=== PATIENT | female | born 1950 | race Caucasian/White ===

== ENCOUNTER 2020-04-30 10:57 | Day surgery (SDC) | payer MEDICARE, SELFPAY ==
[2020-04-24 12:45] VITALS: BMI 23.3
[2020-04-30] VITALS (8 sets, daily range): BP systolic 106–164; BP diastolic 70–104; PULSE 66–97; RESP 16–18; TEMP 36.1–36.7; O2SAT 97–99
--- NOTE | 2020-04-30 11:31 | HO.ANESPROP2 ---
[facility] Past Medical History Medical History (Updated 04/24/20 @ 12:42 by Humera Escalante) Reactive airway disease that is not asthma Surgical History Surgical History (Updated 04/24/20 @ 12:42 by Humera Escalante) Hx of wisdom tooth extraction Social History Social History (Updated 04/24/20 @ 12:44 by Humera Escalante) Alcohol intake: current Alcohol intake frequency: 0-2 drinks per day Smoking Status: Former smoker Years Smoked: 47 Smoking Quit Date: 04/14/2020 Use of substances other than those prescribed or required for medical reasons: No Advance Directives: No Advance Directives Information Provided: No Advance Directives on File: No Meds Allergies Allergy/AdvReac Type Severity Reaction Status Date / Time No Known Allergies Allergy Verified 04/29/20 13:11 Home Medications Medication Instructions Recorded Confirmed Type bupropion HCl 150 mg PO BID 04/24/20 04/24/20 History Exam Exam Date and Time: April 30, 2020 1131 Height,Weight and Vital Signs: Height 5 ft 6 in Weight 65.771 kg Last Vital Signs Temp 97.0 F 04/30/20 11:01 Pulse 91 04/30/20 11:27 Resp 18 04/30/20 11:27 BP 158/92 H 04/30/20 11:27 Pulse Ox 97 04/30/20 11:27 Airway Mallampati Class: II TM Dist: >3cm Neck ROM: Full Heart: RRR Assessment and Plan Assessment Anesthesia Assessment: Anesthesia Plan Discussed Final Anesthetic Review NPO: Yes ASA Class: II Final Preanesthetic Review: Consent Obtained/Reviewed Anesthetic Plan Anesthetic Plan: MAC: Disposition: Standard PACU
--- NOTE | 2020-04-30 11:44 | MHC.SHP ---
Pre-Procedural Eval Section B Chief Complaint: Screening Relevant Family History (Specify if Yes): No Relevant Social History: Tobacco Use (ex smoker, just gave up) Present Medications: see Short Stay Collaborative assessment Medical History: Significant History (glaucoma, carpal tunnel) History of Previous Operations: No relevant previous surgery Allergies: Allergies Allergy/AdvReac Type Severity Reaction Status Date / Time No Known Allergies Allergy Verified 04/29/20 13:11 Review of Systems Sugical H&P ROS: Negative: Constitution, Cardiovascular, Respiratory, Neurological, Psychiatric, Hem-Onc, Allergic/Immunologic, Gastrointestinal, Genitourinary, Musculoskeletal, Integumentary, Endocrine and Eyes/Ears/Nose/Throat Exam Surgical H&P Exam: Normal: HEENT, Normal: Heart, Normal: Lungs, Normal: Extremities, Normal: Abdomen, Normal: Skin and Normal: Neurological Plan Diagnosis/Plan: Unchanged Patient has been examined and remains a candidate for the planned procedure
--- NOTE | 2020-04-30 13:27 | PM.OP ---
Brief Operative Note Date of Service: 04/30/20 Pre-op diagnosis: colon screen Post-op diagnosis: same Procedure: see op note Surgeon: Michelle Moore MD Anesthesia: MAC Estimated blood loss (mL): 25 Condition: stable Disposition: PACU
--- NOTE | 2020-04-30 13:28 | P.OP_ITS ---
Operative Note Operative Note Date of Service: 04/30/20 Narrative: Operative Information Procedure Description: Colonoscopy COLONOSCOPY Instrument: Olympus variable stiffness pediatric scope 190L Colonoscopy Monitoring: Vital signs and clinical assessment, continuous EKG monitoring, Pulse oximetry, Carbon Dioxide monitoring and blood pressure monitoring were done throughout the procedure. Colon withdrawal time was 66 minutes. Procedure: The patient was placed in the left lateral decubitis position and pre-procedure medications were administered. After a digital rectal examination of the ano-rectum, the video colonoscope was inserted into the rectum and advanced through the colon to the cecum/TI. The colonoscope was slowly withdrawn in a retrograde panoramic fashion and the colon mucosa was carefully examined including a retroflexed view of the rectum. Findings and interventions are described below. Procedure Difficulty:easy Findings: Terminal Ileum-normal Cecum: Large polypoid mass occupying about 1/3 rd of the cecum and extending to the verge of the proximal ascending colon, the central part appeared to be depressed, biopsies taken but felt soft. Ascending Colon: 8-9 mm sessile polyp removed with cold snare Transverse Colon -normal Descending Colon: 10-12 mm pedunculated polyp and 10 mm sessile polyp removed with cold snare. Sigmoid Colon: diverticulosis, x 2 large polypoid lesions, largest was sessile type and measured about 25 mm-30 mm, this was injected with epinephrine and then ORISE with good lift. It was piece meal resected and pieces recovered using net. The edges of the area were treated with soft tip coag. There was oozing of blood and 6 clips applied with cessation of bleeding. The next polyp was pedunculated and measured about 20 mm, the stalk was clipped x 3 clips and then the polyp was removed piece meal with hot snare. There was a few smaller polypoid lesions measuring 8-10 mm, only one was removed due to time constraints and her colon was going into spasm. Rectum: Retroflexion with small to moderate sized internal hemorrhoids, grade I Anorectum - normal Colon preparation: [place] Bowel Preparation Scale Right colon; 2 Transverse colon: 3 Left colon; 2 (0 = Unprepared colon segment with mucosa not seen due to solid stool that cannot be cleared. 1 = Portion of mucosa of the colon segment seen, but other areas of the colon segment not well seen due to staining, residual stool and/or opaque liquid. 2 = Minor amount of residual staining, small fragments of stool and/or opaque liquid, but mucosa of colon segment seen well. 3 = Entire mucosa of colon segment seen well with no residual staining, small fragments of stool or opaque liquid) Impression and Post Procedure Diagnosis: colonic polyps internal hemerrhoids diverticulosis Plan: High fiber diet leaflet Avoid straining at stool, epsom salts and sitz bath, anusol supps or cream Refer to Dr Almaraz for right hemicolectomy, will need early colonoscopy for removal of smaller polyps on the left side. 1 week course of Augmentin to prevent post polypectomy syndrome, avoid nsaid for 5 days Above findings were reviewed with the patient and relevant handouts were provided if indicated.
[2020-04-30] MEDS: Amoxicillin/Potassium Clav 875 MG TABLET PO (14:31)
--- NOTE | 2020-04-30 14:45 | HO.POSTANES ---
Post Anesthesia Evaluation Post Anesthesia Evaluation Vital Signs: Vital Signs Temp Pulse Resp BP Pulse Ox 04/30/20 14:26 75 16 158/82 H 98 04/30/20 14:12 98.1 F 66 16 164/81 H 99 04/30/20 13:57 71 16 146/81 H 99 04/30/20 13:42 80 16 146/88 H 98 04/30/20 13:35 79 16 121/77 98 04/30/20 13:28 98 F 81 16 106/70 97 04/30/20 11:27 91 18 158/92 H 97 04/30/20 11:01 97.0 F 97 16 163/104 H 97 Anesthesia: Monitored Mental Status: Awake Pain Control: Satisfactory Nausea/Vomiting: None Hydration: Adequate Anesthesia-Related Issues: No Anes. Related Issues
== END 2020-04-30 15:02 | disposition home or self-care (01) ==
PROVIDERS: Visit Provider Internal Medicine Gastroenterology
PROC: 0DJD8ZZ Inspection of Lower Intestinal Tract, Via Natural or Artificial Opening Endoscopic (ICD-10-PCS; CPT 45378; principal; 2020-04-30 12:20)
DX: Z12.11 Encounter for screening for malignant neoplasm of colon (principal); D12.0 Benign neoplasm of cecum; D12.2 Benign neoplasm of ascending colon; D12.4 Benign neoplasm of descending colon; D12.5 Benign neoplasm of sigmoid colon; K57.30 Diverticulosis of large intestine without perforation or abscess without bleeding; K64.0 First degree hemorrhoids; Z87.891 Personal history of nicotine dependence; Z79.899 Other long term (current) drug therapy
CPT/HCPCS: 45385; 45380; 45381; 88305; J0171; J2370

== ENCOUNTER 2020-05-16 12:54 | Outpatient (REF) | payer MEDICARE, SELFPAY ==
[2020-05-16 15:01] LABS: Blood Urea Nitrogen 16 mg/dL (9-16); Estimated Glomerular Filt Rate > 60
== END 2020-05-16 12:55 | disposition home or self-care (01) ==
LOC: HO.LAB 12:54
PROVIDERS: PCP Registered Nurse; Visit Provider Surgery
DX: D12.0 Benign neoplasm of cecum (principal); D12.5 Benign neoplasm of sigmoid colon; Z87.891 Personal history of nicotine dependence; Z90.49 Acquired absence of other specified parts of digestive tract
CPT/HCPCS: 82565; 84520; 99202

== ENCOUNTER 2020-05-23 09:27 | Outpatient (REF) | payer MEDICARE, SELFPAY ==
--- NOTE | 2020-05-23 09:29 | CT_ITS ---
EXAMINATION: CT ABDOMEN AND PELVIS WITH CONTRAST CLINICAL INFORMATION: Polyp of colon. COMPARISON: None. TECHNIQUE: Multidetector volumetric images were obtained from the superior aspect of the liver through the pubic symphysis following administration 85 mL of Omnipaque 350 intravenous contrast. Sagittal and coronal reformatted images were obtained on the technologist's workstation. Oral contrast: No This CT examination was performed using dose optimization techniques as appropriate, variously including the following: *Automated exposure control *Adjustment of mA and/or kV according to patient size (this includes techniques or standardized protocols for targeted exams where dose is matched to indication/reason for exam; i.e. extremities or head) *Use of iterative reconstruction technique DLP: 343 mGy-cm FINDINGS: LUNG BASES: There is minimal thickening of inferior left major fissure. There is atelectatic changes or scarring right lung base. The heart size is normal. LIVER, GALLBLADDER, AND BILIARY TREE: The liver is normal in size, shape, and attenuation. No focal hepatic lesion or biliary ductal dilatation is present. The gallbladder is unremarkable with no evidence of radiopaque gallstones, gallbladder wall thickening, or obvious pericholecystic inflammatory changes. PANCREAS: Unremarkable. SPLEEN: Unremarkable. ADRENAL GLANDS: Unremarkable. KIDNEYS AND URETERS: The kidneys are normal in size, shape, and attenuation. No hydronephrosis, hydroureter, or calculi seen. No perinephric stranding. BLADDER: Unremarkable. GASTROINTESTINAL TRACT: There is scattered stool seen throughout the colon without any significant distention. The small bowel loops are normal caliber. The appendix is normal caliber. ABDOMINAL WALL: No significant hernia is appreciated. LYMPH NODES: Normal. VASCULAR: Unremarkable. PELVIC VISCERA: The uterus is anteverted and unremarkable. There is no free air or free fluid. No evidence of inguinal hernia or abnormal lymph nodes. OSSEOUS STRUCTURES: There are degenerative disc changes at all lumbar disc levels with vacuum disc phenomena at L2-L3, L4-L5 and L5-S1 disc level. Grade 1 anterolisthesis of L4 over L5 is noted. There is moderate ventral spondylosis lower dorsal spine. CT/CT abdomen pelvis w con IMPRESSION: Mild constipation. No acute process seen. Grade 1 anterolisthesis L4 over L5. There are degenerative disc changes at all lumbar disc levels and moderate ventral spondylosis lower dorsal spine.
[2020-05-23] MEDS: iohexoL 350 MG/ML 100 ML INFUS..BTL 85 ML IV (09:58)
== END 2020-05-23 09:28 | disposition home or self-care (01) ==
LOC: HO.CT 09:27
PROVIDERS: Visit Provider Surgery
DX: K63.5 Polyp of colon (principal)
CPT/HCPCS: 74177; Q9967

== ENCOUNTER → 2020-05-28 08:38 | Outpatient (BNVA) | payer MEDICARE, SELFPAY | PROVIDERS: PCP Registered Nurse; Referring Provider Registered Nurse; Visit Provider Physician Assistant | DX: Z13.89 Encounter for screening for other disorder (principal) | CPT/HCPCS: Q3014 ==

== ENCOUNTER 2020-06-21 09:06 | Inpatient (IN) | payer MEDICARE, SELFPAY ==
--- NOTE | 2020-06-18 | ECG_ITS ---
Test Reason : SMOKER, ETOH, PREOP Blood Pressure : / mmHG Vent. Rate : 075 BPM Atrial Rate : 075 BPM P-R Int : 186 ms QRS Dur : 098 ms QT Int : 398 ms P-R-T Axes : 072 025 058 degrees QTc Int : 444 ms Normal sinus rhythm Normal ECG No previous ECGs available Referred By: Emily Reid Electronically Signed By:Tj Escobar
[2020-06-18 11:53] VITALS: BP 154/85; PULSE 81; RESP 20; O2SAT 97; BMI 24.9
--- NOTE | 2020-06-18 12:34 | P.CONAN_ITS ---
Documented by User: Emily Reid 06/19/20 09:46 HPI - Anesthesia Eval Consult details Narrative: 69yo F for Bowel Resection Quit smoking 04/2020 2-3 liquor drinks daily. Denies any h/o withdrawal symptoms. Instructed to gradually decrease preop. Pending labs,type and screen, ekg [facility] Past Medical History Medical History Arthritis Back pain Bronchitis Ex-smoker for less than 1 year Polyp of cecum Reactive airway disease that is not asthma Family History Family History Brother History of lung cancer, Onset Age: 52 History of kidney cancer Family history of problems with anesthesia: No Surgical History Surgical History History of colonoscopy (04/30/20) Hx of wisdom tooth extraction History of Problems with Anesthesia: No Social History Social History (Updated 06/18/20 @ 12:16 by Emma Flowers) Are you a primary healthcare market consultant to a significant other at home: No Do you presently have visiting nurse or other home services: No Alcohol intake: current Alcohol intake frequency: 0-2 drinks per day Alcohol type: hard liquor Smoking Status: Former smoker Cigarettes Per Day: 3 Years Smoked: 47 Smoked in Last 30 Days: No Smoking Quit Date: 04/14/20 Use of substances other than those prescribed or required for medical reasons: Yes Substance Use Type: Marijuana Substance Use Frequency: Occasionally Have you been hit, kicked, punched, or otherwise hurt by someone within the past year? If so, by whom?: No Advance Directives Information Provided: No Recently lost weight without trying: No Narrative Narrative: No recent illness >4 mets with walking Meds Allergies Allergy/AdvReac Type Severity Reaction Status Date / Time No Known Allergies Allergy Verified 06/21/20 06:07 Home Medications Medication Instructions Recorded Confirmed Type bupropion HCl 150 mg PO BID 04/24/20 06/18/20 History B.breve-L.acid-L.rham-S.thermo 2 tab PO DAILY 06/18/20 06/18/20 History [Probiotic] rxokglnxukkq-fjohfeiu-fjobdj 1 tab PO DAILY 06/18/20 06/18/20 History [Centrum Silver] Exam Exam Date and Time: June 18, 2020 1234 Height,Weight and Vital Signs: Height 5 ft 6 in Weight 70 kg Last Vital Signs Pulse 81 06/18/20 11:53 Resp 20 06/18/20 11:53 BP 154/85 H 06/18/20 11:53 Pulse Ox 97 06/18/20 11:53 Pertinent Lab Results Pertinent Lab Results: Laboratory Tests 06/18/20 06/18/20 13:07 13:07 WBC 7.6 Hgb 14.4 Hct 42.6 Plt Count 312 Sodium 139 Potassium 4.3 Chloride 101 Carbon Dioxide 27 BUN 15 Creatinine 0.90 Narrative Narrative: EKG 06/2020: NSR@75 Airway Mallampati Class: II TM Dist: >3cm Loose/Missing/Broken Teeth: Yes (Many teeth pulled in preparation for implants. No loose/broken of those remaining.) Heart: RRR Lungs: CTAB Assessment and Plan Assessment Anesthesia Assessment: Anesthesia Plan Discussed, Smoking Cess. Discussed and PAT Visit Documented by User: Bernarda Christianson 06/21/20 07:26 [facility] Past Medical History Medical History Arthritis Back pain Bronchitis Ex-smoker for less than 1 year Polyp of cecum Reactive airway disease that is not asthma Family History Family History Brother History of lung cancer, Onset Age: 52 History of kidney cancer Surgical History Surgical History History of colonoscopy (04/30/20) Hx of wisdom tooth extraction Social History Social History (Updated 06/18/20 @ 12:16 by Emma Flowers) Are you a primary healthcare market consultant to a significant other at home: No Do you presently have visiting nurse or other home services: No Alcohol intake: current Alcohol intake frequency: 0-2 drinks per day Alcohol type: hard liquor Smoking Status: Former smoker Cigarettes Per Day: 3 Years Smoked: 47 Smoked in Last 30 Days: No Smoking Quit Date: 04/14/20 Use of substances other than those prescribed or required for medical reasons: Yes Substance Use Type: Marijuana Substance Use Frequency: Occasionally Have you been hit, kicked, punched, or otherwise hurt by someone within the past year? If so, by whom?: No Advance Directives Information Provided: No Recently lost weight without trying: No Meds Allergies Allergy/AdvReac Type Severity Reaction Status Date / Time No Known Allergies Allergy Verified 06/21/20 06:07 Home Medications Medication Instructions Recorded Confirmed Type bupropion HCl 150 mg PO BID 04/24/20 06/18/20 History B.breve-L.acid-L.rham-S.thermo 2 tab PO DAILY 06/18/20 06/18/20 History [Probiotic] qfkunacctihd-yfxxohet-bqtgos 1 tab PO DAILY 06/18/20 06/18/20 History [Centrum Silver] Exam Airway Mallampati Class: II TM Dist: >3cm Neck ROM: Full Loose/Missing/Broken Teeth: No Heart: RRR Lungs: CTA Assessment and Plan Assessment Anesthesia Assessment: Anesthesia Plan Discussed and Chart Reviewed Final Anesthetic Review NPO: Yes ASA Class: II Final Preanesthetic Review: Meds/Allgs Chart Reviewed, Consent Obtained/Reviewed and Anes Risks/Benef Reviewed Patient Risk: Intermediate Procedure Risk: Intermediate Anesthetic Plan Anesthetic Plan: GA Disposition: Standard PACU
[2020-06-18 13:36] LABS: MANUAL DIFF FLAG NO
[2020-06-18 13:38] LABS: Basophils Percent Auto 0.5 % (0-2); Eosinophils Absolute Auto 0.1 X10*3/uL (0.0-0.4); Eosinophils Percent Auto 1.6 % (0-4); Hematocrit 42.6 % (37-47); Hemoglobin 14.4 g/dl (12.0-16.0); Imm Gran Abs Auto 0.02 X10*3/uL (0.00-0.03); Imm Gran Pct Auto 0.3 % (0.0-0.4); Lymphocytes Absolute Auto 1.4 X10*3/uL (1.2-4.9); Lymphocytes Percent Auto 18.6 % (20-40); Mean Corpuscular HGB Conc 33.8 g/dl (31.0-35.0); Mean Corpuscular Hemoglobin 35.2 pg (27.0-33.0); Mean Corpuscular Volume 104.2 fL (80-98); Mean Platelet Volume 8.7 fL (9.4-12.3); Monocytes Absolute Auto 0.8 X10*3/uL (0.1-1.2); Neutrophils Absolute Auto 5.3 X10*3/uL (2.0-8.3); Platelet Count 312 X10*3/uL (160-400); Red Blood Count 4.09 X10*6/uL (4.20-5.50); Red Cell Distribution Width 12.3 % (11.0-16.0); White Blood Count 7.6 X10*3/uL (4.8-10.8)
[2020-06-18 14:01] LABS: Anion Gap 15 (12-20); Blood Urea Nitrogen 15 mg/dL (9-16); Calcium 9.1 mg/dL (8.4-10.2); Carbon Dioxide 27 mmol/L (22-29); Chloride 101 mmol/L (96-108); Creatinine Clr Calc Pharmacy 55.9; Estimated Glomerular Filt Rate > 60; Glucose Random 85 mg/dL (60-115); Potassium 4.3 mmol/l (3.3-5.1); Sodium 139 mmol/L (135-145)
[2020-06-21] VITALS (12 sets, daily range): BP systolic 127–150; BP diastolic 66–87; PULSE 63–78; RESP 16–18; TEMP 36.1–37.4; O2SAT 96–100
[2020-06-21] MEDS: Lactated Ringers 1,000 ML 100 ML IVCONT (06:39)
[2020-06-21 06:42] LABS: COVID-19 Test Negative (Negative)
--- NOTE | 2020-06-21 09:05 | PM.OP ---
Brief Operative Note Date of Service: 06/21/20 Pre-op diagnosis: cecal polyp Post-op diagnosis: same Procedure: hand assisted laparoscopic right colon resection Surgeon: PRUDENCE WANG MD Anesthesia: MARTIN Optical Designer: Katie Ktaz Estimated blood loss (mL): 25 IV fluids (mL): 900 Urine output (mL): 75 Pathology: other (RIGHT COLON) Condition: stable Disposition: PACU
--- NOTE | 2020-06-21 09:14 | P.HPSUR_ITS ---
Pre-Procedural Eval Section B Chief Complaint: Cecal polyp Details of Present Illness: cecal polyp , large on colonoscopy last Apr 2020 Relevant Family History (Specify if Yes): No Relevant Social History: Tobacco Use Present Medications: see Short Stay Collaborative assessment Medical History: Significant History (smoker) Allergies: Allergies Allergy/AdvReac Type Severity Reaction Status Date / Time No Known Allergies Allergy Verified 06/21/20 06:07 Review of Systems Sugical H&P ROS: Negative: Constitution, Cardiovascular, Respiratory, Neurological, Psychiatric, Hem-Onc, Allergic/Immunologic, Gastrointestinal, Genitourinary, Musculoskeletal, Integumentary, Endocrine and Eye s/Ears/Nose/Throat Exam Surgical H&P Exam: Normal: HEENT, Normal: Heart, Normal: Lungs, Normal: Extremities, Normal: Abdomen, Normal: Skin and Normal: Neurological Plan Diagnosis/Plan: Unchanged I have reviewed the history and physical and performed a pertinent physical examination on my patient. No changes have occurred unless specified.
[2020-06-21] MEDS: oxyCODONE HCl Immed Release 5 MG TABLET PO ×4 (09:53→22:44)
--- NOTE | 2020-06-21 10:39 | OP_ITS ---
SURGEON: Vinh Almaraz MD INDICATIONS: The patient is a 69-year-old female, who had undergone colonoscopy with Dr. Moore last April 2020 and was noted to have a large cecal polyp. 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 This was unresectable endoscopically, so she was referred to me for resection. The patient understood the technique of hand-assisted right colon resection. She was aware of the risks, benefits, and alternatives and she had given consent. PREOPERATIVE DIAGNOSIS: Large cecal polyp POSTOPERATIVE DIAGNOSIS: Large cecal polyp PROCEDURE PERFORMED: Hand-assisted laparoscopic right colon resection. ESTIMATED BLOOD LOSS: COMPLICATIONS: ANESTHESIA: ASSISTANTS: SPECIMENS: FAMILY PRACTICE PHYSICIAN: ALEXANDR Archer. DESCRIPTION OF PROCEDURE: She was brought to the operating room and placed supine on the table under general anesthesia via endotracheal tube. A Flannery catheter was inserted. The abdomen was prepped and draped in usual sterile fashion. A surgical time-out was done. The patient received Cefotan 2 g IV preoperatively. A short midline incision was made in the skin just below the umbilicus using blade #15 and this was carried down to full-thickness skin and subcutaneous fat down to the fascia. The fascia was incised. The peritoneum was entered. We positioned an Tommy wound retractor through this. The GelPort along with an insufflating port were then applied. We insufflated with the camera. We used a 10 mm 30-degree scope and with laparoscopic visualization, we proceeded to insert another 5/12 port in the epigastric area. We removed the insufflating port from the GelPort. We moved the camera through the epigastric port. I then inserted my hand into the GelPort and the patient was placed in a [id number] position. We retracted the bowel loops away from the right side to expose the cecum. The cecum was traced all the way to the right colon and the transverse colon. We reflected all the bowel loops away from right side. I was able to palapte a soft mass in the cecum, which represented the cecal polyp. With laparoscopic visualization, we inserted 5 mm port in the left upper quadrant as this will serve as our working port. We inserted a 5 mm [place] LigaSure through this working port and gently divided the ligamentous attachments of the right colon along the white line of Toldt all the way to the hepatic flexure. We successfully divided the hepatocolic ligaments from the transverse colon and continued to separate the right colon and the hepatic flexure from the retroperitoneum. We the transverse colon from the gallbladder which had ashesions, which were also divided using the [place] dissector. We continued to gently peel off the thin adhesions from the retroperitoneum to continue to mobilize the right colon. By doing so, we were able to clearly identify the duodenum and this was protected during the rest of the dissection. We continued to divide the ligamentous attachments all the way to the cecum until we were able to clearly mobilize this. The appendix was also noted. We continued to separate the right colon from the retroperitoneum along with the hepatic flexure. Once I felt that we had very good mobilization of the right colon and the transverse colon and the hepatic flexure, we proceeded to gently desufflate the port sites. I removed the GelPort and put up the entire right colon all the way to the transverse colon through this incision. We had the whole right colon mobilized all the way past the mid part of the transverse colon. I chose my point of dissection at the hepatic flexure and created a mesenteric window through this. A HARRY 60 mm stapler was applied and this right colon was transected at the flexure. We proceeded to do the same transection on the terminal ileum about 10 mm past the ileocecal valve. Again, I created the mesenteric window and divided this using the HARRY 60 mm stapler. I marked my line of transection on the right colon mesentery by cauterizing this to make sure that we were including the lymph node basin of the right colic pedicle. I then proceeded to use the LigaSure to continue to divide the mesentery in a high ligation fashion. This was done starting from the proximal and then with the distal mesentery, stopping at the ileocolic pedicle. I stopped at the pedicle and thinned this out. We then proceeded to clamp the ileocolic pedicle and this was divided between clamps. I doubly ligated the pedicle with Dexon 2-0 ties. The entire right colon entrance along with the mesentery divided in a high ligation fashion and was then sent for a specimen for immediate gross. We observed for hemostasis. There was noted good hemostasis on the transected mesentery. I then proceeded to do my gdda-ow-ncta anastomosis by aligning the remaining transverse colon and the distal ileal stump. I opened up the apex of the staple line to enter the lumen. I aligned the mesenteric border and inserted each arm of the HARRY 60 mm stapler. We then proceeded to lock the stapler in place at the antimesenteric border and made sure that there was no other structure caught between the staplers. We then proceeded to fire the stapler to create our bxpr-sh-jslm anastomosis. I aligned the edhes of the enterotomy using Allis clamps in full thickness fashion.. I then proceeded to close the enterotomy with a TA 60 mm stapler to complete our anastomosis. I examined all staple lines and these all appeared to be intact. The anastomotic site was viable and did not appear to have any signs of duskiness or ischemia. I applied seromuscular Dexon 2-0 sutures on the crotch of the staple line to release tension from this. I then covered the anastomotic site with omentum. We then proceeded to replace all bowel loops back into the peritoneal cavity. I re-applied the GelPort and examined laparoscopically. I examined all four quadrants. There was no evidence of any bowel injury. There was no other pathology seen. There was no obvious liver lesions as well on examination. Once hemostasis was ensured, we proceeded to then desufflate the port sites. I removed all ports. I removed the Tommy wound retractor and the GelPort. I closed the fascia with a running Maxon 1 stitch. I closed all incisions with skin yoel after changing the gloves. I infiltrated all incisions with Marcaine 0.5% for postop analgesia. Dressings were applied. The patient tolerated the procedure well. There were no complications noted. Initial and final counts of sponge and instruments were correct. Estimated blood loss was about 20 mL. The patient was extubated without difficulty and transferred to the recovery room with stable vital signs. MD SEKOU Noel/ANABELLE / [id number] MTDD
[2020-06-21] MEDS: Lactated Ringers 1,000 ML 80 ML IVCONT ×2 (11:04→22:45)
--- NOTE | 2020-06-21 14:25 | PM.EVENT ---
Event Note Date of Service: 06/21/20 Event Note: underwent hand assisted laparoscopic right colon resection earlier today, uneventful says she has good pain control on clear liquids stable VS abd soft good UO pain mgt advance diet when with recovery of GI function
--- NOTE | 2020-06-21 14:40 | MHC.CM.PN ---
CM MET WITH PT WHO IS ALERT AND ORIENTED, ANTICIPATED DISCHARGE ON , SATURDAY 06/24 PER SURGICAL, HOME WITH NO SERVICES, FRIEND PAULINA FOR TRANSPORT. PT REPORTS SHE IS COMPLETELY INDEPENDENT PRIOR TO PROCEDURE AND DOES NOT ANTICIPATE ANY NEED FOR ASSISTANCE ONCE HOME. PT DENIES USE OF DME AND HOME HEALTH SERVICES. PT VERIFIED PCP AND PHARMACY AND GAVE CM A HARD COPY OF HER HCP. PCP: EMILE CORTEZ PHARMACY: [facility] IN [place] HCP TONEY MARTINEZ ( STEP GRANDDAUGHTER) ALTERNATE: JUDI DARNELL (STE[place])
[2020-06-22] VITALS (9 sets, daily range): BP systolic 124–167; BP diastolic 63–83; PULSE 67–665; RESP 16–20; TEMP 36.8–37.5; O2SAT 93–96
[2020-06-22] MEDS: 0.9 % Sodium Chloride Flush 3 ML SYRINGE IVFLUSH
[2020-06-22] MEDS: oxyCODONE HCl Immed Release 5 MG TABLET PO ×3 (03:06→19:23)
[2020-06-22] MEDS: Morphine Sulfate 2 MG/ML CARTRIDGE 4 MG IVPUSH ×2 (04:46→10:48)
[2020-06-22 06:45] LABS: MANUAL DIFF FLAG NO
[2020-06-22 06:56] LABS: Basophils Percent Auto 0.1 % (0-2); Hematocrit 37.1 % (37-47); Hemoglobin 12.7 g/dl (12.0-16.0); Imm Gran Abs Auto 0.02 X10*3/uL (0.00-0.03); Imm Gran Pct Auto 0.2 % (0.0-0.4); Lymphocytes Absolute Auto 0.7 X10*3/uL (1.2-4.9); Lymphocytes Percent Auto 7.3 % (20-40); Mean Corpuscular HGB Conc 34.2 g/dl (31.0-35.0); Mean Corpuscular Hemoglobin 35.3 pg (27.0-33.0); Mean Corpuscular Volume 103.1 fL (80-98); Mean Platelet Volume 8.8 fL (9.4-12.3); Monocytes Absolute Auto 0.9 X10*3/uL (0.1-1.2); Monocytes Percent Auto 8.7 % (2-11); Neutrophils Absolute Auto 8.4 X10*3/uL (2.0-8.3); Neutrophils Percent Auto 83.7 % (45-73); Platelet Count 267 X10*3/uL (160-400); Red Cell Distribution Width 11.9 % (11.0-16.0)
[2020-06-22 07:14] LABS: Anion Gap 13 (12-20); Blood Urea Nitrogen 9 mg/dL (9-16); Calcium 8.5 mg/dL (8.4-10.2); Carbon Dioxide 26 mmol/L (22-29); Chloride 101 mmol/L (96-108); Creatinine Clr Calc Pharmacy 58.6; Estimated Glomerular Filt Rate > 60; Glucose Random 136 mg/dL (60-115); Potassium 4.3 mmol/l (3.3-5.1); Sodium 136 mmol/L (135-145)
[2020-06-22] MEDS: Heparin Sodium,Porcine 5,000 UNIT/ML VIAL 5000 UNIT SUBCUT ×2 (10:47→18:20)
[2020-06-22] MEDS: buPROPion HCl XL 300 MG TAB.ER.24H PO (10:48)
--- NOTE | 2020-06-22 10:49 | P.PNGS_ITS ---
Subjective Subjective Date of Service: 06/22/20 <ALEXANDR Oliver - Last Filed: 06/22/20 10:58> 06/22/20 <Jose Becerra MD - Last Filed: 06/22/20 14:10> Patient reports: no new complaints and feels better <ALEXANDR Oliver - Last Filed: 06/22/20 10:58> Interval history: States she is feeling better but did have some worsening pain overnight which required IV pain medication. She is OOB and using IS but has not had a BM or flatus yet. She is tolerating her clear liquid diet without N/V. <ALEXANDR Oliver - Last Filed: 06/22/20 10:58> Physical Exam Vital Signs: Vital Signs: Last Vital Signs Temp 98.3 F 06/22/20 08:10 Pulse 76 06/22/20 08:10 Resp 18 06/22/20 08:10 BP 161/80 H 06/22/20 08:10 Pulse Ox 96 06/22/20 08:10 Body Mass Index 24.9 <ALEXANDR Oliver - Last Filed: 06/22/20 10:58> Const: General: healthy appearing and no acute distress <ALEXANDR Oliver - Last Filed: 06/22/20 10:58> Resp: Effort & Inspection: normal respiratory effort <ALEXANDR Oliver - Last Filed: 06/22/20 10:58> Auscultation: clear to auscultation bilaterally <ALEXANDR Oliver - Last Filed: 06/22/20 10:58> Cardio: Jugular venous distension: no JVD <ALEXANDR Oliver - Last Filed: 06/22/20 10:58> Heart sounds: S1 normal heart sound present and S2 normal heart sound present <ALEXANDR Oliver - Last Filed: 06/22/20 10:58> GI: Inspection: Yes normal to inspection <ALEXANDR Oliver Last Filed: 06/22/20 10:58> Palpation (GI): Soft to palpation and Tenderness to palpation present (GI) (appropriated post-op tenderness) <ALEXANDR Oliver Last Filed: 06/22/20 10:58> Skin: General skin exam: no rashes or lesions noted <ALEXANDR Oliver - Last Filed: 06/22/20 10:58> Extrem: General: Yes no calf tenderness <ALEXANDR Oliver - Last Filed: 06/22/20 10:58> Progress Note: A&P Assessment and plan (1) Polyp of cecum: Problem details: 69 yo female POD#1 for Lap R-Colon Resection due to large cecum polyp. She is doing well post-op <ALEXANDR Oliver - Last Filed: 06/22/20 10:58> Status: Acute <ALEXANDR Oliver - Last Filed: 06/22/20 10:58> Assessment and Plan: Continue current care pain mgmt Encourage OOB and IS Will advance diet as tolerated once there is evidence or return of bowel function. <ALEXANDR Oliver - Last Filed: 06/22/20 10:58> . General Surgery Attending - Javier Becerra M.D. Patient was evaluated and examined at the bedside with Mr. Derrell Patrick PA-C. I confirm above findings and plan as documented. Continue current care and await GI function to return. <Jose Becerra MD - Last Filed: 06/22/20 14:10> Fall Risk Details Current Medications: Current Medications Generic Name Dose Route Start Last Admin Trade Name Freq PRN Reason Stop Dose Admin Bupropion HCl 300 mg 06/22/20 09:00 Bupropion Hcl Xl 300 Mg Tab.Er.24h PO DAILY [facility] Heparin Sodium (Porcine) 5,000 unit 06/22/20 11:00 Heparin Sodium,Porcine 5,000 Unit/Ml Vial SUBCUT Q8H [facility] Acetaminophen 1,000 mg in 100 mls @ 400 mls/hr 06/21/20 09:06 Ofirmev IV Q6H PRN Pain, Severe (Pain Scale 7-10) Lactated Ringer's 1,000 mls @ 80 mls/hr 06/21/20 09:15 06/21/20 22:45 Lr IVCONT 80 mls/hr .[id number] [facility] Administration Morphine Sulfate 4 mg 06/21/20 09:06 06/22/20 04:46 Morphine Sulfate 2 Mg/Ml Cartridge IVPUSH 4 mg Q4H PRN Administration Pain, Severe (Pain Scale 7-10) Ondansetron HCl 4 mg 06/21/20 09:06 Ondansetron Hcl 4 Mg/2 Ml Vial IVPUSH Q8H PRN Nausea Oxycodone HCl 5 mg 06/21/20 09:06 06/22/20 03:06 Oxycodone Hcl Immed Release 5 Mg Tablet PO 5 mg Q4H PRN Administration Pain, Moderate (Pain Scale 4-6 Sodium Chloride 3 ml 06/21/20 16:00 06/22/20 00:00 0.9 % Sodium Chloride Flush 3 Ml Syringe IVFLUSH 3 ml QSHIFT [place] Administration <ALEXANDR Oliver - Last Filed: 06/22/20 10:58> Time Spent With Patient Time: Total time spent is greater than 50% in coordination of care (as documented) at patient's floor/unit and/or counseling patient: <ALEXANDR Oliver - Last Filed: 06/22/20 10:58> Time with patient: less than 15 minutes <Jose Becerra MD - Last Filed: 06/22/20 14:10> Progress Note: Quality VTE Deep Vein Thrombosis/Pulmonary Embolism Present on Admission: No <ALEXANDR Oliver - Last Filed: 06/22/20 10:58>
[2020-06-22] MEDS: Lactated Ringers 1,000 ML 80 ML IVCONT ×2 (10:56→22:19)
--- NOTE | 2020-06-22 11:09 | HO.POSTANES ---
Post Anesthesia Evaluation Post Anesthesia Evaluation Vital Signs: Vital Signs Temp Pulse Resp BP Pulse Ox 06/22/20 10:48 16 06/22/20 08:10 98.3 F 76 18 161/80 H 96 06/22/20 05:33 71 18 158/78 H 06/22/20 05:12 67 167/79 H 06/22/20 04:53 665 H 156/81 H 06/22/20 04:00 98.9 F 72 16 152/83 H 96 06/22/20 00:00 99.5 F 76 16 124/63 93 Anesthesia: General Endotracheal-GETA Mental Status: Awake Pain Control: Satisfactory Nausea/Vomiting: None Hydration: Adequate Anesthesia-Related Issues: No Anes. Related Issues
[2020-06-23] VITALS (8 sets, daily range): BP systolic 127–149; BP diastolic 65–83; PULSE 78–88; RESP 12–18; TEMP 36.1–37.7; O2SAT 91–97
[2020-06-23] MEDS: oxyCODONE HCl Immed Release 5 MG TABLET PO ×2 (00:19→06:16)
[2020-06-23] MEDS: Heparin Sodium,Porcine 5,000 UNIT/ML VIAL 5000 UNIT SUBCUT ×3 (02:54→20:26)
[2020-06-23] MEDS: buPROPion HCl XL 300 MG TAB.ER.24H PO (09:58)
--- NOTE | 2020-06-23 10:19 | PM.PNGS ---
Subjective Subjective Date of Service: 06/23/20 <ALEXANDR Oliver - Last Filed: 06/23/20 10:25> 06/23/20 <Jose Becerra MD - Last Filed: 06/23/20 14:27> Patient reports: no new complaints and feels better <ALEXANDR Oliver - Last Filed: 06/23/20 10:25> Interval history: Denies BM or flatus as of yet but feels like she could soon. Tolerating a liquid diet without N/V, she would like to try something more substantial.. She is OOB. <ALEXANDR Oliver - Last Filed: 06/23/20 10:25> Physical Exam Vital Signs: Vital Signs: Last Vital Signs Temp 98.5 F 06/23/20 07:51 Pulse 84 06/23/20 07:51 Resp 18 06/23/20 07:51 BP 147/76 H 06/23/20 07:51 Pulse Ox 95 06/23/20 07:51 Body Mass Index 24.9 <ALEXANDR Oliver - Last Filed: 06/23/20 10:25> Const: General: healthy appearing and no acute distress <ALEXANDR Oliver - Last Filed: 06/23/20 10:25> Resp: Effort & Inspection: normal respiratory effort <ALEXANDR Oliver - Last Filed: 06/23/20 10:25> Cardio: Rate: regular rate <ALEXANDR Oliver - Last Filed: 06/23/20 10:25> GI: Inspection: Yes normal to inspection and Yes incision (C/D/I) <ALEXANDR Oliver - Last Filed: 06/23/20 10:25> Palpation (GI): Soft to palpation and Tenderness to palpation present (GI) (mild around incision) <ALEXANDR Oliver - Last Filed: 06/23/20 10:25> Skin: General skin exam: no rashes or lesions noted <ALEXANDR Oliver - Last Filed: 06/23/20 10:25> Extrem: General: Yes no calf tenderness <ALEXANDR Oliver - Last Filed: 06/23/20 10:25> Progress Note: A&P Assessment and plan (1) Polyp of cecum: Problem details: 69 yo female POD#2 for Lap R-Colon Resection due to large cecum polyp. She is doing well post-op <ALEXANDR Oliver - Last Filed: 06/23/20 10:25> Status: Acute <ALEXANDR Oliver - Last Filed: 06/23/20 10:25> Assessment and Plan: Continue current care. Will advance to full liquid. Encourage OOB and IS Discharge will depend on pain improvement and return of bowel function <ALEXANDR Oliver - Last Filed: 06/23/20 10:25> . General Surgery Attending - Javier Becerra M.D. Patient was evaluated and examined at the bedside with Mr. Derrell Patrick PA-C. I confirm above findings and plan as documented. Still awaiting GI function to return. Pt c/o only clear liquids. Negotiated and OK'd full liquids. Continue current postop care. <Jose Becerra MD - Last Filed: 06/23/20 14:27> Fall Risk Details Current Medications: Current Medications Generic Name Dose Route Start Last Admin Trade Name Freq PRN Reason Stop Dose Admin Bupropion HCl 300 mg 06/22/20 09:00 06/23/20 09:58 Bupropion Hcl Xl 300 Mg Tab.Er.24h PO 300 mg DAILY [facility] Administration Heparin Sodium (Porcine) 5,000 unit 06/22/20 11:00 06/23/20 02:54 Heparin Sodium,Porcine 5,000 Unit/Ml Vial SUBCUT 5,000 unit Q8H [facility] Administration Acetaminophen 1,000 mg in 100 mls @ 400 mls/hr 06/21/20 09:06 Ofirmev IV Q6H PRN Pain, Severe (Pain Scale 7-10) Lactated Ringer's 1,000 mls @ 80 mls/hr 06/21/20 09:15 06/22/20 22:19 Lr IVCONT 80 mls/hr .[id number] [facility] Administration Morphine Sulfate 4 mg 06/21/20 09:06 06/22/20 10:48 Morphine Sulfate 2 Mg/Ml Cartridge IVPUSH 4 mg Q4H PRN Administration Pain, Severe (Pain Scale 7-10) Ondansetron HCl 4 mg 06/21/20 09:06 Ondansetron Hcl 4 Mg/2 Ml Vial IVPUSH Q8H PRN Nausea Oxycodone HCl 5 mg 06/21/20 09:06 06/23/20 06:16 Oxycodone Hcl Immed Release 5 Mg Tablet PO 5 mg Q4H PRN Administration Pain, Moderate (Pain Scale 4-6 Sodium Chloride 3 ml 06/21/20 16:00 06/23/20 09:57 0.9 % Sodium Chloride Flush 3 Ml Syringe IVFLUSH Not Given QSHIFT [facility] <ALEXANDR Oliver - Last Filed: 06/23/20 10:25> Time Spent With Patient Time: Total time spent is greater than 50% in coordination of care (as documented) at patient's floor/unit and/or counseling patient: <ALEXANDR Oliver - Last Filed: 06/23/20 10:25> Time with patient: 15 - 24 minutes <Jose Becerra MD - Last Filed: 06/23/20 14:27> Progress Note: Quality VTE Deep Vein Thrombosis/Pulmonary Embolism Present on Admission: No <ALEXANDR Oliver - Last Filed: 06/23/20 10:25>
[2020-06-23] MEDS: Lactated Ringers 1,000 ML 80 ML IVCONT ×2 (11:53→23:59)
--- NOTE | 2020-06-23 14:52 | MHC.CM.PN ---
PER REVIEW OF PROGRESS NOTES, DISCHARGE PLAN IS BASED ON RETURN OF BOWEL FUNCTION AND PAIN CONTROL PLAN IS STILL HOME WITH NO SERVICES NEEDED.
[2020-06-24] MEDS: Heparin Sodium,Porcine 5,000 UNIT/ML VIAL 5000 UNIT SUBCUT ×3 (04:22→18:59)
[2020-06-24] MEDS: buPROPion HCl XL 300 MG TAB.ER.24H PO (07:28)
[2020-06-24] MEDS: 0.9 % Sodium Chloride Flush 3 ML SYRINGE IVFLUSH ×3 (07:28→23:33)
[2020-06-24 08:00] VITALS: BP 158/77; PULSE 65; RESP 20; TEMP 37.3; O2SAT 96
--- NOTE | 2020-06-24 08:07 | PM.PNGS ---
Subjective Subjective Date of Service: 06/24/20 <Brianne Friedman PA-C - Last Filed: 06/24/20 08:11> 06/24/20 <Vinh Almaraz MD - Last Filed: 06/24/20 08:29> Interval history: Feels well. Taking tylenol only for pain. No flatus yet. Tolerating full liquids. Has been OOB and ambulating in room, using IS. <Brianne Friedman PA-C - Last Filed: 06/24/20 08:11> Physical Exam Vital Signs: Vital Signs: Last Vital Signs Temp 98.1 F 06/23/20 23:25 Pulse 78 06/23/20 23:25 Resp 14 06/23/20 23:25 BP 149/77 H 06/23/20 23:25 Pulse Ox 96 06/23/20 23:25 Body Mass Index 24.9 <Brianne Friedman PA-C - Last Filed: 06/24/20 08:11> Const: General: comfortable, no acute distress and alert <Brianne Friedman PA-C - Last Filed: 06/24/20 08:11> Orientation/consciousness: patient oriented x3 <Brianne Friedman PA-C - Last Filed: 06/24/20 08:11> Eyes: Sclerae: sclerae normal <ANTOINETTE Archer Last Filed: 06/24/20 08:11> Resp: Effort & Inspection: normal respiratory effort <Brianne Friedman PA-C - Last Filed: 06/24/20 08:11> GI: Inspection: No distended and Yes incision (clean, ecchymosis at distal aspect of midline incision) <ANTOINETTE Archer Last Filed: 06/24/20 08:11> Palpation (GI): Soft to palpation, Tenderness to palpation present (GI) (mild, incisional) and No Rebound tenderness present <ANTOINETTE Archer Last Filed: 06/24/20 08:11> Skin: General skin exam: no rashes or lesions noted <ANTOINETTE Archer Last Filed: 06/24/20 08:11> Neuro: General: patient oriented x3 <Brianne Friedman PA-C - Last Filed: 06/24/20 08:11> Extrem: General: Yes no clubbing, cyanosis or edema <Brianne Friedman PA-C - Last Filed: 06/24/20 08:11> Progress Note: A&P Assessment and plan (1) Polyp of cecum: Status: Acute <Brianne Friedman PA-C - Last Filed: 06/24/20 08:11> (2) Ex-smoker for less than 1 year: Status: Acute <Brianne Friedman PA-C - Last Filed: 06/24/20 08:11> (3) S/P right colectomy: Problem details: POD #3 <Brianne Friedman PA-C - Last Filed: 06/24/20 08:11> Status: Acute <Brianne Friedman PA-C - Last Filed: 06/24/20 08:11> Assessment and Plan: Doing well, comfortable. VSS. Abd exam benign, incisions clean. Awaiting some evidence of return of GI fxn. Elisabeth full liquids, once passes flatus, can advance to solid diet. Enouraged OOB/ambulation of halls. D/c IVF. Anticipate d/c in next 1-2 days once GI fxn returned, tolerating solid food. <Brianne Friedman PA-C - Last Filed: 06/24/20 08:11> looks well no significant pain tolerating full liquids abd soft, nondistended await flatus doing well seen and examined; agree with ALEXANDR Friedman <Vinh Almaraz MD - Last Filed: 06/24/20 08:29> Fall Risk Details Current Medications: Current Medications Generic Name Dose Route Start Last Admin Trade Name Freq PRN Reason Stop Dose Admin Bupropion HCl 300 mg 06/22/20 09:00 06/24/20 07:28 Bupropion Hcl Xl 300 Mg Tab.Er.24h PO 300 mg DAILY [facility] Administration Heparin Sodium (Porcine) 5,000 unit 06/22/20 11:00 06/24/20 04:22 Heparin Sodium,Porcine 5,000 Unit/Ml Vial SUBCUT 5,000 unit Q8H [facility] Administration Morphine Sulfate 4 mg 06/21/20 09:06 06/22/20 10:48 Morphine Sulfate 2 Mg/Ml Cartridge IVPUSH 4 mg Q4H PRN Administration Pain, Severe (Pain Scale 7-10) Ondansetron HCl 4 mg 06/21/20 09:06 Ondansetron Hcl 4 Mg/2 Ml Vial IVPUSH Q8H PRN Nausea Oxycodone HCl 5 mg 06/21/20 09:06 06/23/20 06:16 Oxycodone Hcl Immed Release 5 Mg Tablet PO 5 mg Q4H PRN Administration Pain, Moderate (Pain Scale 4-6 Sodium Chloride 3 ml 06/21/20 16:00 06/24/20 07:28 0.9 % Sodium Chloride Flush 3 Ml Syringe IVFLUSH 3 ml QSHIFT [facility] Administration <Brianne Friedman PA-C - Last Filed: 06/24/20 08:11> Time Spent With Patient Time: Total time spent is greater than 50% in coordination of care (as documented) at patient's floor/unit and/or counseling patient: <Brianne Friedman PA-C - Last Filed: 06/24/20 08:11> Time with patient: 15 - 24 minutes <Brianne Friedman PA-C - Last Filed: 06/24/20 08:11> Progress Note: Quality VTE Deep Vein Thrombosis/Pulmonary Embolism Present on Admission: No <ANTOINETTE Archer Last Filed: 06/24/20 08:11>
[2020-06-24 12:00] VITALS: BP 156/89; PULSE 72; RESP 20; TEMP 37.7; O2SAT 98
[2020-06-24] MEDS: Acetaminophen 325 MG TABLET 650 MG PO (12:09)
[2020-06-24 12:34] VITALS: BP 100/56; PULSE 83; RESP 19; TEMP 36.8; O2SAT 93
[2020-06-24 15:38] VITALS: BP 146/80; PULSE 90; RESP 18; TEMP 36.6; O2SAT 98
--- NOTE | 2020-06-24 15:40 | PM.EVENT ---
Event Note Date of Service: 06/24/20 Event Note: Continues to feel well has passed flatus Wants to eat Stable vital signs Abdomen soft Advance diet Likely home tomorrow
[2020-06-24 19:20] VITALS: BP 146/71; PULSE 83; RESP 19; TEMP 36.4; O2SAT 98
[2020-06-24 23:41] VITALS: BP 153/69; PULSE 72; RESP 19; TEMP 36.4; O2SAT 95
[2020-06-25 03:03] VITALS: BP 113/59; PULSE 77; RESP 19; TEMP 36.3; O2SAT 94
[2020-06-25] MEDS: Heparin Sodium,Porcine 5,000 UNIT/ML VIAL 5000 UNIT SUBCUT ×2 (03:10→11:13)
--- NOTE | 2020-06-25 07:48 | PM.PNGS ---
Subjective Subjective Date of Service: 06/25/20 <Brianne Friedman PA-C - Last Filed: 06/25/20 07:51> 06/25/20 <Vinh Almaraz MD - Last Filed: 06/25/20 09:51> Patient reports: no new complaints <ANTOINETTE Archer Last Filed: 06/25/20 07:51> Interval history: Began passing flatus yesterday and ate solid food. Pain remains mild, incisional and she is comfortable. She has been OOB and ambulating. Denies nausea, vomiting. Wants to go home. <Brianne Friedman PA-C - Last Filed: 06/25/20 07:51> Physical Exam Vital Signs: Vital Signs: Last Vital Signs Temp 97.3 F 06/25/20 03:03 Pulse 77 06/25/20 03:03 Resp 19 06/25/20 03:03 BP 113/59 L 06/25/20 03:03 Pulse Ox 94 06/25/20 03:03 Body Mass Index 24.9 <Brianne Friedman PA-C - Last Filed: 06/25/20 07:51> Const: General: healthy appearing, comfortable and no acute distress <Brianne Friedman PA-C - Last Filed: 06/25/20 07:51> Orientation/consciousness: patient oriented x3 <ANTOINETTE Archer Last Filed: 06/25/20 07:51> Eyes: Sclerae: sclerae normal <Brianne Friedman PA-C - Last Filed: 06/25/20 07:51> Resp: Effort & Inspection: normal respiratory effort <Brianne Friedman PA-C - Last Filed: 06/25/20 07:51> Cardio: Rate: regular rate <ANTOINETTE Archer Last Filed: 06/25/20 07:51> GI: Inspection: Yes incision (clean, ecchymosis at inferior aspect of midline) <ANTOINETTE Archer Last Filed: 06/25/20 07:51> Palpation (GI): Soft to palpation, not firm, nontender and no guarding <ANTOINETTE Archer Last Filed: 06/25/20 07:51> Skin: General skin exam: no rashes or lesions noted <Brianne Friedman PA-C - Last Filed: 06/25/20 07:51> Neuro: General: patient oriented x3 <Brianne Friedman PA-C - Last Filed: 06/25/20 07:51> Extrem: General: Yes no clubbing, cyanosis or edema <Brianne Friedman PA-C - Last Filed: 06/25/20 07:51> Progress Note: A&P Assessment and plan (1) Ex-smoker for less than 1 year: Status: Acute <Brianne Friedman PA-C - Last Filed: 06/25/20 07:51> (2) Polyp of cecum: Status: Acute <Brianne Friedman PA-C - Last Filed: 06/25/20 07:51> Assessment and Plan: s/p right colon resection continues to feel well has flatus tolerating diet looks well abd soft home today fup in office dc instructions given seen and examined - agree with ALEXANDR Friedman <Vinh Almaraz MD - Last Filed: 06/25/20 09:51> (3) S/P right colectomy: Problem details: POD #4 <Brianne Friedman PA-C - Last Filed: 06/25/20 07:51> Status: Acute <Brianne Friedman PA-C - Last Filed: 06/25/20 07:51> Assessment and Plan: Doing well, comfortable, now with some evidence of return of GI fxn. VSS. Abd exam benign, incisions clean. Enouraged OOB/ambulation of halls. Will reassess later today, if continues to do well and tolerating solid diet will d/c to home today. Has f/u appt with Dr. almaraz in office. <Brianne Friedman PA-C - Last Filed: 06/25/20 07:51> Fall Risk Details Current Medications: Current Medications Generic Name Dose Route Start Last Admin Trade Name Freq PRN Reason Stop Dose Admin Acetaminophen 650 mg 06/24/20 08:07 06/24/20 12:09 Acetaminophen 325 Mg Tablet PO 650 mg Q6H PRN Administration fever, pain Bupropion HCl 300 mg 06/22/20 09:00 06/24/20 07:28 Bupropion Hcl Xl 300 Mg Tab.Er.24h PO 300 mg DAILY [facility] Administration Heparin Sodium (Porcine) 5,000 unit 06/22/20 11:00 06/25/20 03:10 Heparin Sodium,Porcine 5,000 Unit/Ml Vial SUBCUT 5,000 unit Q8H [facility] Administration Morphine Sulfate 4 mg 06/21/20 09:06 06/22/20 10:48 Morphine Sulfate 2 Mg/Ml Cartridge IVPUSH 4 mg Q4H PRN Administration Pain, Severe (Pain Scale 7-10) Ondansetron HCl 4 mg 06/21/20 09:06 Ondansetron Hcl 4 Mg/2 Ml Vial IVPUSH Q8H PRN Nausea Oxycodone HCl 5 mg 06/21/20 09:06 06/23/20 06:16 Oxycodone Hcl Immed Release 5 Mg Tablet PO 5 mg Q4H PRN Administration Pain, Moderate (Pain Scale 4-6 Sodium Chloride 3 ml 06/21/20 16:00 06/24/20 23:33 0.9 % Sodium Chloride Flush 3 Ml Syringe IVFLUSH 3 ml QSHIFT [place] Administration <Brianne Friedman PA-C - Last Filed: 06/25/20 07:51> Time Spent With Patient Time: Total time spent is greater than 50% in coordination of care (as documented) at patient's floor/unit and/or counseling patient: <Brianne Friedman PA-C - Last Filed: 06/25/20 07:51> Time with patient: 15 - 24 minutes <ANTOINETTE Archer Last Filed: 06/25/20 07:51> Progress Note: Quality VTE Deep Vein Thrombosis/Pulmonary Embolism Present on Admission: No <Brianne Friedman PA-C - Last Filed: 06/25/20 07:51>
[2020-06-25 07:58] VITALS: BP 160/93; PULSE 75; RESP 18; TEMP 36.9; O2SAT 97
[2020-06-25] MEDS: buPROPion HCl XL 300 MG TAB.ER.24H PO (08:46)
[2020-06-25] MEDS: 0.9 % Sodium Chloride Flush 3 ML SYRINGE IVFLUSH (08:46)
[2020-06-25 11:03] VITALS: BP 130/82; PULSE 81; RESP 18; TEMP 36.9; O2SAT 98
--- NOTE | 2020-06-25 13:13 | MHC.CM.PN ---
PT DISCHARGING HOME SELF-CARE WITH FOLLOW-UP WITH DR. WANG ON 07/03/20, FRIEND TO TRANSPORT.
--- NOTE | 2020-06-26 14:22 | P.DS_ITS ---
DS: Providers Provider Date of Service: 06/26/20 Date of admission: 06/21/20 09:06 Primary care physician: Reena Quintero NP DS: Diagnosis Discharge Diagnosis (1) Polyp of cecum: Status: Acute (2) S/P right colectomy: Status: Acute Problem details: POD #4 DS: Medications Discharge Medications Home Medications: Home Medications Medication Instructions Recorded Confirmed bupropion HCl 150 mg PO BID 04/24/20 06/18/20 B.breve-L.acid-L.rham-S.thermo 2 tab PO DAILY 06/18/20 06/18/20 pvrofguoqbsa-nkwsaqjl-fqrixu 1 tab PO DAILY 06/18/20 06/18/20 Previous Rx's Medication Instructions Recorded oxycodone-acetaminophen [Percocet] 1 tab PO Q4-6H PRN #16 tab 06/25/20 DS: Summary Hospital Course Hospital Course: BRIEF HPI: The patient is a 69-year-old female, who had undergone colonoscopy with April 2020 and was noted to have a large cecal polyp. 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 This was unresectable endoscopically, so she was referred to sc for resection. The patient understood the technique of hand-assisted right colon resection and now presents for the procedure. HOSPITAL COURSE: On 06/21/20, a hand assisted laparoscopic right colon resection was performed by Dr. Almaraz without complication. The patient tolerated the procedure well and was admitted to the medical/surgical floor for observation. She had an uncomplicated recovery course. She was started on clear liquids initially post operatively. Her pain control was well managed with PO/IV PRN analgesics and just tylenol by the end of the stay. Her kessler was removed on POD #1 and she was ambulated. She was tolerating clear liquid diet without any nausea or vomiting. She was advanced to a full liquid diet on POD #2. It however it took her until POD #3 to begin passing flatus, after which she was advanced to a solid diet. On the day of discharge, she was tolerating a solid diet without nausea or vomiting, her abdominal pain was minimal. She was passing continuous flatus. Her abdomen was benign with minimal tenderness and a clean incision. She felt ready for discharge. She was discharged to home on 06/25/20 in stable condition. Status at Discharge Functional status at discharge: independent ambulation Overall status at discharge: patient is progressing back to baseline Time Spent with Patient Time attestation: Total time spent providing and/or coordinating discharge services: Discharge coordination time: Less than 30 minutes Quality: VTE Deep Vein Thrombosis/Pulmonary Embolism Present on Admission: No Physical Exam Vital Signs: Vital Signs: Last Vital Signs Temp 98.5 F 06/25/20 11:03 Pulse 81 06/25/20 11:03 Resp 18 06/25/20 11:03 BP 130/82 06/25/20 11:03 Pulse Ox 98 06/25/20 11:03 Body Mass Index 24.9 Const: General: healthy appearing, comfortable, no acute distress and alert Orientation/consciousness: patient oriented x3 Eyes: Sclerae: sclerae normal Resp: Effort & Inspection: normal respiratory effort Cardio: Rate: regular rate GI: Inspection: No distended and Yes incision (clean) Palpation (GI): Soft to palpation, nontender, no guarding, not rigid and No Rebound tenderness present Skin: General skin exam: no rashes or lesions noted Neuro: General: patient oriented x3 Extrem: General: Yes no clubbing, cyanosis or edema DS: Data Data Completed and Pending Completed studies during hospitalization [Text1]: Procedures Excision of Right Large Intestine, Open Approach (06/21/20) Pending studies at discharge: Pending at discharge 06/21/20 08:29 Surgical [PTH] Stat Labs on day of discharge: Laboratory Tests 06/18/20 06/18/20 06/18/20 13:07 13:07 13:07 WBC 7.6 RBC 4.09 L Hgb 14.4 Hct 42.6 MCV 104.2 H MCH 35.2 H MCHC 33.8 RDW 12.3 Plt Count 312 MPV 8.7 L Immature Gran % (Auto) 0.3 Neut % (Auto) 69.0 Lymph % (Auto) 18.6 L [place] % (Auto) 10.0 Eos % (Auto) 1.6 Baso % (Auto) 0.5 Lymph # (Auto) 1.4 [place] # (Auto) 0.8 Eos # (Auto) 0.1 Baso # (Auto) 0.0 Abs Immat Gran (auto) 0.02 Absolute Neuts (auto) 5.3 Absolute Nucleated RBC 0.000 Nucleated RBC % (auto) 0.0 Sodium 139 Potassium 4.3 Chloride 101 Carbon Dioxide 27 Anion Gap 15 BUN 15 Creatinine 0.90 Estim Creat Clear Calc 55.9 Estimated GFR > 60 Random Glucose 85 Calcium 9.1 COVID-19 (DUNG) COVID-19 Clin Com Blood Type B Negative Antibody Screen NEGATIVE 06/21/20 06/22/20 06/22/20 06:15 06:24 06:24 WBC 10.0 RBC 3.60 L Hgb 12.7 Hct 37.1 MCV 103.1 H MCH 35.3 H MCHC 34.2 RDW 11.9 Plt Count 267 MPV 8.8 L Immature Gran % (Auto) 0.2 Neut % (Auto) 83.7 H Lymph % (Auto) 7.3 L [place] % (Auto) 8.7 Eos % (Auto) 0.0 Baso % (Auto) 0.1 Lymph # (Auto) 0.7 L [place] # (Auto) 0.9 Eos # (Auto) 0.0 Baso # (Auto) 0.0 Abs Immat Gran (auto) 0.02 Absolute Neuts (auto) 8.4 H Absolute Nucleated RBC 0.000 Nucleated RBC % (auto) 0.0 Sodium 136 Potassium 4.3 Chloride 101 Carbon Dioxide 26 Anion Gap 13 BUN 9 Creatinine 0.86 Estim Creat Clear Calc 58.6 Estimated GFR > 60 Random Glucose 136 H D Calcium 8.5 D COVID-19 (DUNG) Negative COVID-19 [employer] See Note Blood Type Antibody Screen Discharge Plan Discharge Anticipated Discharge Date/Time: 06/25/20 12:30 Patient Disposition: Home, Self-Care Referrals: Reena Quintero NP [Primary Care Provider] - Vinh Almaraz MD [Physician] - 07/03/20 Discharge Medications: New oxycodone-acetaminophen [Percocet] 5-325 mg tablet 1 tab PO Q4-6H PRN (Reason: pain (scale score 7-10)) Qty: 16 RF: 0 Continued bupropion HCl 150 mg Tablet Sustained-Release 12 Hr 150 mg PO BID RF: 0 ioapvozmowcb-wqqgotmw-zoixad Tablet 1 tab PO DAILY RF: 0 B.breve-L.acid-L.rham-S.thermo 3 billion cell Tablet,Chewable 2 tab PO DAILY RF: 0 Discharge Orders: Discharge Order (Routine); Ordered 06/25/20 Ordered By: Vinh Sung Diet: other Activity on Discharge: No heavy lifting Patient Instructions: Low Fiber Diet (DC), Laparoscopic Bowel Resection (DC) Discharge Date/Time: 06/25/20 13:23 Activity Restrictions/Additional Instructions: If the incision area is tender, you may apply an ice pack for short intervals (No more than 20 minutes on, followed by at least 20 minutes off). Do not apply heat. Do not use creams, lotions, or topical antibiotics unless instructed to do so by your surgeon. These can cause infection or allergic reaction. Ok to shower. You have yoel closing your incision and these will be removed approximately 10-14 days after surgery. Call Your Doctor If: -Your temperature exceeds 101.5? F -You experience excessive pain or swelling -You have an unexpected reaction to medication -You have excessive bleeding -You experience continued vomiting/nausea -Your incision begins to separate -Your incision shows signs of infection such as increased redness, swelling, excessive pain, drainage (light blood or clear fluid is normal) or heat Visit Report Forms: Patient Portal Discharge page Care Plan Goals: Return to baseline health and activity following recovery period. Health Concerns: Unresectable polyp of cecum, s/p VINCENT right colon resection Plan of Treatment: Return of GI function, advance diet, discharge to home with f/u in office.
== END 2020-06-25 13:23 | disposition home or self-care (01) | DRG 331 ==
PROVIDERS: Nurse Practitioner; Physician Assistant Surgical; Admitting Provider Surgery; PCP Registered Nurse; Visit Provider Surgery
PROC: 0DBF0ZZ Excision of Right Large Intestine, Open Approach (ICD-10-PCS; principal; 2020-06-21 07:30)
DX: D12.0 Benign neoplasm of cecum (principal); Z20.828 Contact with and (suspected) exposure to other viral communicable diseases; Z87.891 Personal history of nicotine dependence; Z79.899 Other long term (current) drug therapy
CPT/HCPCS: 36415; 80048; 85025; 86850; 86900; 86901; 87635; 88309; 88329; 88341; 88342; 93005; C1758; J0131; J1100; J1170; J2250; J2270; J2370; J2405; J3010

== ENCOUNTER 2020-06-30 07:34 | Emergency (ER) | payer MEDICARE, SELFPAY ==
[2020-06-30 08:14] VITALS: BP 134/74; PULSE 77; RESP 16; TEMP 36.9; O2SAT 99; BMI 24.2
--- NOTE | 2020-06-30 08:15 | ED_ITS ---
HPI - Wound/Laceration General Chief Complaint: Wound/Laceration Stated Complaint: ABCESS AT SURGERY SIGHT Time Seen by Provider: 06/30/20 08:10 History of Present Illness HPI narrative: Patient is a 61-year-old female status post polyp removal on June 21. Complaining of wound sites having discharge. The discharge is yellowish in color. There is a slight redness to the staple line. No fever no chills. No nausea no vomiting. Last bowel movement was . Patient is passing gas. The discharge started yesterday. Related Data Home Medications Medication Instructions Recorded Confirmed bupropion HCl 150 mg PO BID 04/24/20 06/18/20 B.breve-L.acid-L.rham-S.thermo 2 tab PO DAILY 06/18/20 06/18/20 kznsqntiizrx-gptpeljc-ddrakr 1 tab PO DAILY 06/18/20 06/18/20 Previous Rx's Medication Instructions Recorded oxycodone-acetaminophen [Percocet] 1 tab PO Q4-6H PRN #16 tab 06/25/20 sulfamethoxazole-trimethoprim 1 tab PO BID 7 Days #14 tab 06/30/20 [Bactrim DS] Allergies Allergy/AdvReac Type Severity Reaction Status Date / Time No Known Allergies Allergy Verified 06/21/20 06:07 Review of Systems Review of Systems: Constitutional: No Weight loss, No Fever, No Chills, No Night Sweats, No Fatigue, No Malaise ENT/Mouth: No Hearing loss, No Ear Pain, No Nasal Congestion, No Sinus Pain, No Hoarseness, No sore throat, No Rhinorrhea, No Swallowing Difficulty Eyes: No Eye Pain, No Swelling, No Redness, No Foreign Body, No Discharge, No Vision Changes Cardiovascular: No Chest Pain, No SOB, No Dyspnea on Exertion, No Orthopnea, No Edema, No Palpitations Respiratory: No Cough, No Sputum, No Wheezing, No Smoke Exposure, No Dyspnea Gastrointestinal: no Nausea, No Vomiting, No Diarrhea, No Constipation, No abdominal Pain, No Hematochezia, No Melena Genitourinary: no irregular bleeding, No Dysuria, No Urinary Frequency, No Hematuria, No Urinary Incontinence, No Urgency, No Flank Pain, No Urinary Flow Changes, No Hesitancy Musculoskeletal: No joint pain, No Myalgias, No Joint Swelling Skin: Positive redness and discharge at the incision site. Neuro: No Weakness, No Numbness, No Paresthesias, No Loss of Consciousness, No Dizziness, No Headache Psych: No Anxiety/Panic, No Depression, No SI/HI/AH/VH, No Social Issues, Heme/Lymph: No Bruising, No Bleeding,No Lymphadenopathy Endocrine: No Polyuria, No Polydipsia, No Temperature Intolerance Yes all other systems are reviewed and are negative [facility] Past Medical History Attestation statement: The following information was validated with the patient. Medical History Arthritis Back pain Bronchitis Ex-smoker for less than 1 year Polyp of cecum Reactive airway disease that is not asthma Surgical History History of colonoscopy (04/30/20) Hx of wisdom tooth extraction Family History Family History Brother History of lung cancer, Onset Age: 52 History of kidney cancer Social History Social History (Updated 06/18/20 @ 12:16 by Emma Flowers) Alcohol intake: current Alcohol intake frequency: 0-2 drinks per day Alcohol type: hard liquor Smoking Status: Former smoker Cigarettes Per Day: 3 Years Smoked: 47 Substance Use Type: Marijuana Advance Directives: No Advance Directives Information Provided: Yes service: No Current occupational status: retired Physical Exam Vital Signs: Vital Signs: Last Vital Signs Temp 98.5 F 06/30/20 08:14 Pulse 77 06/30/20 08:14 Resp 16 06/30/20 08:14 BP 134/74 06/30/20 08:14 Pulse Ox 99 06/30/20 08:14 Body Mass Index 24.2 Appearance: Alert. Oriented X3. No acute distress. Eyes: Pupils equal, round and reactive to light. ENT: Pharynx normal. Neck: Normal inspection. Neck supple. No lymph nodes noted. No crepitus CVS: Normal heart rate and rhythm. Pulses normal. Normal S1 and S2 Respiratory: No respiratory distress. Breath sounds normal. No Wheezing. No rales Abdomen: Soft and nontender. No rigidity. No distention. good BS x4. The infra umbilical midline incision site appear red. There is serosanguineous discharge from the lower aspect of the wound. Skin: Skin warm and dry. Normal skin color. Normal skin turgor. Extremities: No lower extremity edema. Neurovascular intact to all extremities. No Lacerations. No Rash Neuro: Oriented X 3. No motor deficit. No sensory deficit. Moving all extermities. No slurred speech MDM - Wound/Laceration MDM Narrative Medical decision making narrative: Patient evaluated by surgery. ( Dr. Sauceda) Will discharge patient home, close follow-up outpatient basis. Antibiotics started. Lab Data Result diagrams: 06/30/20 08:44 06/30/20 08:44 Labs: Lab Results 06/30/20 06/30/20 Range/Units 08:44 08:44 WBC 9.3 (4.8-10.8) X10*3/uL RBC 3.31 L (4.20-5.50) X10*6/uL Hgb 11.3 L (12.0-16.0) g/dl Hct 33.6 L (37-47) % MCV 101.5 H (80-98) fL MCH 34.1 H (27.0-33.0) pg MCHC 33.6 (31.0-35.0) g/dl RDW 11.7 (11.0-16.0) % Plt Count 378 D (160-400) X10*3/uL MPV 8.5 L (9.4-12.3) fL Immature Gran % (Auto) 0.4 (0.0-0.4) % Neut % (Auto) 79.2 H (45-73) % Lymph % (Auto) 7.8 L (20-40) % [place] % (Auto) 11.6 H (2-11) % Eos % (Auto) 0.8 (0-4) % Baso % (Auto) 0.2 (0-2) % Lymph # (Auto) 0.7 L (1.2-4.9) X10*3/uL [place] # (Auto) 1.1 (0.1-1.2) X10*3/uL Eos # (Auto) 0.1 (0.0-0.4) X10*3/uL Baso # (Auto) 0.0 (0.0-0.2) X10*3/uL Abs Immat Gran (auto) 0.04 H (0.00-0.03) X10*3/uL Absolute Neuts (auto) 7.4 (2.0-8.3) X10*3/uL Absolute Nucleated RBC 0.000 (0.0-0.012) X10*3/uL Nucleated RBC % (auto) 0.0 (0.0-0.2) /100WBC Sodium 140 (135-145) mmol/L Potassium 3.1 L D (3.3-5.1) mmol/l Chloride 101 (96-108) mmol/L Carbon Dioxide 27 (22-29) mmol/L Anion Gap 15 (12-20) BUN 8 L (9-16) mg/dL Creatinine 0.80 (0.5-1.4) mg/dL Estim Creat Clear Calc 63.0 Estimated GFR > 60 Random Glucose 121 H (60-115) mg/dL Calcium 8.7 (8.4-10.2) mg/dL Discharge Plan Discharge Clinical Impression: Wound dehiscence Patient Disposition: Home, Self-Care Instructions: Chronic Wounds (ED) Prescriptions: New sulfamethoxazole-trimethoprim [Bactrim DS] 800-160 mg tablet 1 tab PO BID 7 Days Qty: 14 RF: 0 No Action bupropion HCl 150 mg Tablet Sustained-Release 12 Hr 150 mg PO BID RF: 0 umwvuirjyczh-pvrxtzdr-yyelhh Tablet 1 tab PO DAILY RF: 0 B.breve-L.acid-L.rham-S.thermo 3 billion cell Tablet,Chewable 2 tab PO DAILY RF: 0 oxycodone-acetaminophen [Percocet] 5-325 mg tablet 1 tab PO Q4-6H PRN (Reason: pain (scale score 7-10)) Qty: 16 RF: 0 Referrals: Vinh Almaraz MD [Physician] - 2 days
[2020-06-30 08:48] LABS: MANUAL DIFF FLAG NO
[2020-06-30 08:49] LABS: Basophils Percent Auto 0.2 % (0-2); Eosinophils Absolute Auto 0.1 X10*3/uL (0.0-0.4); Eosinophils Percent Auto 0.8 % (0-4); Hematocrit 33.6 % (37-47); Hemoglobin 11.3 g/dl (12.0-16.0); Imm Gran Abs Auto 0.04 X10*3/uL (0.00-0.03); Imm Gran Pct Auto 0.4 % (0.0-0.4); Lymphocytes Absolute Auto 0.7 X10*3/uL (1.2-4.9); Lymphocytes Percent Auto 7.8 % (20-40); Mean Corpuscular HGB Conc 33.6 g/dl (31.0-35.0); Mean Corpuscular Hemoglobin 34.1 pg (27.0-33.0); Mean Corpuscular Volume 101.5 fL (80-98); Mean Platelet Volume 8.5 fL (9.4-12.3); Monocytes Absolute Auto 1.1 X10*3/uL (0.1-1.2); Monocytes Percent Auto 11.6 % (2-11); Neutrophils Absolute Auto 7.4 X10*3/uL (2.0-8.3); Neutrophils Percent Auto 79.2 % (45-73); Platelet Count 378 X10*3/uL (160-400); Red Blood Count 3.31 X10*6/uL (4.20-5.50); Red Cell Distribution Width 11.7 % (11.0-16.0); White Blood Count 9.3 X10*3/uL (4.8-10.8)
[2020-06-30 09:16] LABS: Anion Gap 15 (12-20); Blood Urea Nitrogen 8 mg/dL (9-16); Calcium 8.7 mg/dL (8.4-10.2); Carbon Dioxide 27 mmol/L (22-29); Chloride 101 mmol/L (96-108); Estimated Glomerular Filt Rate > 60; Glucose Random 121 mg/dL (60-115); Potassium 3.1 mmol/l (3.3-5.1); Sodium 140 mmol/L (135-145)
--- NOTE | 2020-06-30 09:26 | PC.NURSE ---
Dr Sauceda to bedside at this time
[2020-06-30 10:19] VITALS: BP 133/80; PULSE 77; RESP 16
--- NOTE | 2020-06-30 13:23 | PM.CNGS ---
History of Present Illness Consult details Consult date: 06/30/20 Reason for consult: wound care Requesting physician: Shahnaz Raymundo Narrative: This is a 69-year-old female who is about 9 days status post hand assisted laparoscopic right hemicolectomy done by Dr. Almaraz for treatment of a large cecal polyp. She had been doing well postoperatively, but noted some swelling around her incision. Last night, the lower aspect of the midline incision began to drain brown, purulence material at home. She felt well otherwise. She applied a dressing and presented to the emergency department this morning for further evaluation and treatment. Her appetite is good. Her bowels are moving normally. She has not experienced fever or chills. Review of Systems Constitutional: Constitutional: Reports chills PMFSH Past Medical History Medical History Arthritis Back pain Bronchitis Ex-smoker for less than 1 year Polyp of cecum Reactive airway disease that is not asthma Family History Family History Brother History of lung cancer, Onset Age: 52 History of kidney cancer Surgical History Surgical History History of colonoscopy (04/30/20) Hx of wisdom tooth extraction Social History Social History (Updated 06/18/20 @ 12:16 by Emma Flowers) Alcohol intake: current Alcohol intake frequency: 0-2 drinks per day Alcohol type: hard liquor Smoking Status: Former smoker Cigarettes Per Day: 3 Years Smoked: 47 Substance Use Type: Marijuana Advance Directives: No Advance Directives Information Provided: Yes service: No Current occupational status: retired [employer] Allergies Allergy/AdvReac Type Severity Reaction Status Date / Time No Known Allergies Allergy Verified 06/21/20 06:07 Home Medications Medication Instructions Recorded Confirmed Type bupropion HCl 150 mg PO BID 04/24/20 06/18/20 History B.breve-L.acid-L.rham-S.thermo 2 tab PO DAILY 06/18/20 06/18/20 History wqfoujaqggmj-iakdctju-sczqum 1 tab PO DAILY 06/18/20 06/18/20 History Physical Exam Vital Signs: Vital Signs: Last Vital Signs Temp 98.5 F 06/30/20 08:14 Pulse 77 06/30/20 10:19 Resp 16 06/30/20 10:19 BP 133/80 06/30/20 10:19 Pulse Ox 99 06/30/20 08:14 Body Mass Index 24.2 Const: Other: Alert, healthy appearing, in no acute distress GI: Other: Soft, nondistended, nontender except in the area of the lower midline incision, where there is surrounding mild to moderate erythema of the skin. The incision was slightly open between the lower most 2 yoel. There was no active drainage on initial inspection. I probed the area with a cotton swab, which caused moderate serosanguineous drainage. Results Labs Result diagrams: 06/30/20 08:44 06/30/20 08:44 Labs: Abnormal lab results 06/30/20 06/30/20 Range/Units 08:44 08:44 RBC 3.31 L (4.20-5.50) X10*6/uL Hgb 11.3 L (12.0-16.0) g/dl Hct 33.6 L (37-47) % MCV 101.5 H (80-98) fL MCH 34.1 H (27.0-33.0) pg MPV 8.5 L (9.4-12.3) fL Neut % (Auto) 79.2 H (45-73) % Lymph % (Auto) 7.8 L (20-40) % [place] % (Auto) 11.6 H (2-11) % Lymph # (Auto) 0.7 L (1.2-4.9) X10*3/uL Abs Immat Gran (auto) 0.04 H (0.00-0.03) X10*3/uL Potassium 3.1 L D (3.3-5.1) mmol/l BUN 8 L (9-16) mg/dL Random Glucose 121 H (60-115) mg/dL Short CBC 06/30/20 Range/Units 08:44 WBC 9.3 (4.8-10.8) X10*3/uL Hgb 11.3 L (12.0-16.0) g/dl Hct 33.6 L (37-47) % Plt Count 378 D (160-400) X10*3/uL BMP 06/30/20 08:44 Sodium 140 Potassium 3.1 L D Chloride 101 Carbon Dioxide 27 BUN 8 L Creatinine 0.80 Calcium 8.7 All other labs normal. Assessment and Plan (1) Postoperative wound seroma: Status: Acute 69-year-old female 9 days status post hand assisted laparoscopic right hemicolectomy presenting with incisional drainage. Examination today revealed evidence of serosanguineous drainage from the lower midline wound. Fascia appeared intact. I removed the lower most stable to wear encouraged continued drainage and applied a dry sterile dressing. She will change the dressing daily, or more frequently if needed. She will call if she has any difficulties. She will begin a course of Bactrim DS 1 p.o. b.i.d. and will follow up with Dr. Almaraz in the office as scheduled on 07/03/2020. Discussed with Dr. Raymundo.
== END 2020-06-30 10:21 | disposition home or self-care (01) ==
PROVIDERS: Emergency Provider Emergency Medicine Emergency Medical Services; PCP Registered Nurse
DX: T81.30XA Disruption of wound, unspecified, initial encounter (principal); X58.XXXA Exposure to other specified factors, initial encounter; Z87.891 Personal history of nicotine dependence; F12.90 Cannabis use, unspecified, uncomplicated
CPT/HCPCS: 36415; 80048; 85025; 99282; 99283

== ENCOUNTER → 2020-07-03 09:47 | Outpatient (BNVA) | payer MEDICARE, SELFPAY | PROVIDERS: PCP Registered Nurse; Visit Provider Surgery | DX: C18.9 Malignant neoplasm of colon, unspecified (principal) | CPT/HCPCS: 99212 ==

== ENCOUNTER → 2020-07-18 09:50 | Outpatient (BNVA) | payer MEDICARE, SELFPAY | PROVIDERS: PCP Registered Nurse; Visit Provider Surgery | DX: Z48.3 Aftercare following surgery for neoplasm (principal); C18.9 Malignant neoplasm of colon, unspecified | CPT/HCPCS: 99212 ==

== ENCOUNTER 2020-09-25 08:45 | Day surgery (SDC) | payer MEDICARE, SELFPAY ==
--- NOTE | 2020-09-23 14:58 | P.CONAN_ITS ---
Documented by User: Emily Reid 09/23/20 15:00 HPI - Anesthesia Eval Consult details Narrative: 69yo F for Colonoscopy daily ETOH s/p lap bowel resection 06/2020 [facility] Active Problems Active Problems: All Active Problems (Updated 07/22/20 @ 11:17 by Lucia Mcfarland MD) Colon cancer (Acute) Postoperative wound seroma (Acute) S/P right colectomy (Acute) Ex-smoker for less than 1 year (Acute) Polyp of cecum (Acute) Past Medical History Medical History Arthritis Back pain Bronchitis Colon cancer Ex-smoker for less than 1 year Polyp of cecum Reactive airway disease that is not asthma Family History Family History Brother History of lung cancer, Onset Age: 52 History of kidney cancer Brother Diabetes Mother No problems noted. Father HTN (hypertension) Heart attack Surgical History Surgical History History of colectomy History of colonoscopy (04/30/20) Hx of wisdom tooth extraction Social History Social History Alcohol intake: current Alcohol intake frequency: 0-2 drinks per day Alcohol type: hard liquor Smoking Status: Former smoker Tobacco Type: Cigarette Years Smoked: 47 Use of substances other than those prescribed or required for medical reasons: Yes Substance Use Type: Marijuana Advance Directives: No Advance Directives Information Provided: Yes service: No Current occupational status: retired Meds Allergies Allergy/AdvReac Type Severity Reaction Status Date / Time No Known Allergies Allergy Verified 09/25/20 08:57 Home Medications Medication Instructions Recorded Confirmed Last Taken Type bupropion HCl 150 mg PO BID 04/24/20 07/22/20 09/25/20 06:30 History B.breve-L.acid-L.rham-S.thermo 2 tab PO DAILY 06/18/20 07/22/20 Unknown History kdnshdzebhub-knlypzsy-pnjxqj 1 tab PO DAILY 06/18/20 07/22/20 Unknown History Exam Exam Date and Time: September 23, 2020 6228 Pertinent Lab Results Pertinent Lab Results: Laboratory Tests 07/22/20 07/22/20 11:00 11:00 WBC 7.0 Hgb 13.4 Hct 41.0 D Plt Count 288 Sodium 140 Potassium 4.6 Chloride 102 Carbon Dioxide 30 H BUN 20 H D Creatinine 0.93 Narrative Narrative: EKG 06/2020 Vent. Rate : 075 BPM Atrial Rate : 075 BPM P-R Int : 186 ms QRS Dur : 098 ms QT Int : 398 ms P-R-T Axes : 072 025 058 degrees QTc Int : 444 ms Normal sinus rhythm Normal ECG No previous ECGs available Assessment and Plan Assessment Anesthesia Assessment: Chart Reviewed Documented by User: Bernarda Christianson 09/25/20 10:01 PMFSH Past Medical History Medical History Arthritis Back pain Bronchitis Colon cancer Ex-smoker for less than 1 year Polyp of cecum Reactive airway disease that is not asthma Family History Family History Brother History of lung cancer, Onset Age: 52 History of kidney cancer Brother Diabetes Mother No problems noted. Father HTN (hypertension) Heart attack Surgical History Surgical History History of colectomy History of colonoscopy (04/30/20) Hx of wisdom tooth extraction Social History Social History Alcohol intake: current Alcohol intake frequency: 0-2 drinks per day Alcohol type: hard liquor Smoking Status: Former smoker Tobacco Type: Cigarette Years Smoked: 47 Use of substances other than those prescribed or required for medical reasons: Yes Substance Use Type: Marijuana Advance Directives: No Advance Directives Information Provided: Yes service: No Current occupational status: retired Meds Allergies Allergy/AdvReac Type Severity Reaction Status Date / Time No Known Allergies Allergy Verified 09/25/20 08:57 Home Medications Medication Instructions Recorded Confirmed Last Taken Type bupropion HCl 150 mg PO BID 04/24/20 07/22/20 09/25/20 06:30 History B.breve-L.acid-L.rham-S.thermo 2 tab PO DAILY 06/18/20 07/22/20 Unknown History rnjjdkusnfix-ddlavzxg-jbwvkx 1 tab PO DAILY 06/18/20 07/22/20 Unknown History Exam Airway Mallampati Class: II TM Dist: >3cm Neck ROM: Full Heart: RRR Lungs: CTA Assessment and Plan Assessment Anesthesia Assessment: Anesthesia Plan Discussed and Chart Reviewed Final Anesthetic Review NPO: Yes ASA Class: II Final Preanesthetic Review: Meds/Allgs Chart Reviewed, Consent Obtained/Reviewed and Anes Risks/Benef Reviewed Patient Risk: Low Procedure Risk: Intermediate Anesthetic Plan Anesthetic Plan: MAC: Disposition: Standard PACU
[2020-09-25 09:15] VITALS: BP 148/87; PULSE 74; RESP 18; TEMP 36.7; O2SAT 99; BMI 25.8
[2020-09-25] MEDS: Lactated Ringers 1,000 ML 100 ML IVCONT (09:32)
--- NOTE | 2020-09-25 09:47 | P.HPSUR_ITS ---
Pre-Procedural Eval Section B Chief Complaint: Colon Cancer Details of Present Illness: Hx of right hemicolectomy due to large polyp lesion, with focus of neoplasia found without mets or deeper invasion Relevant Family History (Specify if Yes): No Relevant Social History: Other (specify) (THC use, daily alcohol use) Present Medications: see Short Stay Collaborative assessment Medical History: Significant History (Arthritis Back pain Bronchitis Colon cancer Ex-smoker for less than 1 year Polyp of cecum Reactive airway disease that is not asthma) History of Previous Operations: Relevant previous surgery/procedure and date(s) (wisdom tooth removal) Allergies: Allergies Allergy/AdvReac Type Severity Reaction Status Date / Time No Known Allergies Allergy Verified 09/25/20 08:57 Review of Systems Sugical H&P ROS: Negative: Constitution, Cardiovascular, Respiratory, Neurological, Psychiatric, Hem-Onc, Allergic/Immunologic, Gastrointestinal, Genitourinary, Musculoskeletal, Integumentary, Endocrine and Eyes/Ears/Nose/Throat Exam Surgical H&P Exam: Normal: HEENT, Normal: Heart, Normal: Lungs, Normal: Extre mities, Normal: Abdomen, Normal: Skin and Normal: Neurological Plan Diagnosis/Plan: Unchanged I have reviewed the history and physical and performed a pertinent physical examination on my patient. No changes have occurred unless specified. Colonoscopy for cancer surveillance.
--- NOTE | 2020-09-25 11:11 | P.OP_ITS ---
Operative Note Operative Note Date of Service: 09/25/20 Narrative: Operative Information Procedure Description: Colonoscopy COLONOSCOPY Instrument: Olympus variable stiffness pediatric scope 190L Colonoscopy Monitoring: Vital signs and clinical assessment, continuous EKG monitoring, Pulse oximetry, Carbon Dioxide monitoring and blood pressure monitoring were done throughout the procedure. Colon withdrawal time was 14 minutes. Procedure: The patient was placed in the left lateral decubitis position and pre-procedure medications were administered. After a digital rectal examination of the ano-rectum, the video colonoscope was inserted into the rectum and advanced through the colon to the cecum/TI. The colonoscope was slowly withdrawn in a retrograde panoramic fashion and the colon mucosa was carefully examined including a retroflexed view of the rectum. Findings and interventions are described below. Procedure Difficulty:moderate due to v tight sigmoid colon Findings: ileocecal anastomosis--normal Ascending Colon: normal Transverse Colon - 5-7 mm sessile polyp removed with biopsy forceps, scar from prior polpypectomy noted Descending Colon:normal Sigmoid Colon: x 2 sessile polyps removed with forceps 8-9 mm, there was another polypoid area which could just have been a prominent fold from prior polypectomy which was hot snared. numerous variable sized diverticula noted with tight colon. Rectum: Retroflexion with small internal hemorrhoids, grade I Anorectum - normal Colon preparation: [place] Bowel Preparation Scale Right colon; 2 Transverse colon: 3 Left colon; 3 (0 = Unprepared colon segment with mucosa not seen due to solid stool that nubia ot be cleared. 1 = Portion of mucosa of the colon segment seen, but other areas of the colon segment not well seen due to staining, residual stool and/or opaque liquid. 2 = Minor amount of residual staining, small fragments of stool and/or opaque liquid, but mucosa of colon segment seen well. 3 = Entire mucosa of colon segment seen well with no residual staining, small fragments of stool or opaque liquid) Impression and Post Procedure Diagnosis: polyps internal hemorrhoids diverticular disease Plan: High fiber diet leaflet Avoid straining at stool, epsom salts and sitz bath, anusol supps or cream prn Repeat Colonoscopy in 1 year or earlier if clinically indicated Above findings were reviewed with the patient and relevant handouts were provided if indicated.
--- NOTE | 2020-09-25 11:11 | PM.OP ---
Brief Operative Note Date of Service: 09/25/20 Pre-op diagnosis: hx of colon cancer Post-op diagnosis: same Procedure: see op note Surgeon: Michelle Moore MD Anesthesia: MAC Estimated blood loss (mL): 0 Condition: stable Disposition: PACU
[2020-09-25 11:17] VITALS: BP 120/67; PULSE 91; RESP 18; TEMP 36.1; O2SAT 98
[2020-09-25 11:39] VITALS: BP 141/91; PULSE 68; RESP 20; O2SAT 100
[2020-09-25 11:40] VITALS: TEMP 36.8
== END 2020-09-25 12:30 | disposition home or self-care (01) ==
PROVIDERS: PCP Registered Nurse; Visit Provider Internal Medicine Gastroenterology
PROC: 0DJD8ZZ Inspection of Lower Intestinal Tract, Via Natural or Artificial Opening Endoscopic (ICD-10-PCS; CPT 45378; principal; 2020-09-25 10:10)
DX: Z12.11 Encounter for screening for malignant neoplasm of colon (principal); Z85.038 Personal history of other malignant neoplasm of large intestine; D12.5 Benign neoplasm of sigmoid colon; K63.5 Polyp of colon; K57.30 Diverticulosis of large intestine without perforation or abscess without bleeding; K64.0 First degree hemorrhoids; Z90.49 Acquired absence of other specified parts of digestive tract; Z87.891 Personal history of nicotine dependence; F12.90 Cannabis use, unspecified, uncomplicated; Z79.899 Other long term (current) drug therapy
CPT/HCPCS: 45385; 45380; 88305

== ENCOUNTER → 2021-01-15 08:54 | Outpatient (BNVA) | payer MEDICARE, SELFPAY | PROVIDERS: PCP Registered Nurse; Visit Provider Surgery | DX: Z48.3 Aftercare following surgery for neoplasm (principal); Z86.018 Personal history of other benign neoplasm | CPT/HCPCS: 99212 ==

== ENCOUNTER 2021-09-17 08:14 | Outpatient (REF) | payer MEDICARE, SELFPAY ==
--- NOTE | ~2021-09-17 | US_ITS ---
EXAMINATION: US ABDOMEN COMPLETE CLINICAL INFORMATION: Elevated alkaline phosphatase. COMPARISON: CT abdomen and pelvis 05/23/2020. TECHNIQUE: Real-time imaging of the abdominal viscera. FINDINGS: PANCREAS: Visualized visualized portions of the pancreas are unremarkable, the tail is not well visualized. ABDOMINAL AORTA: The proximal, mid, and distal segments are normal in caliber. INFERIOR VENA CAVA: Visualized portions are normal. LIVER: Mild heterogeneous echotexture suggesting hepatic steatosis. The liver is normal in size. The liver contour is normal. No focal hepatic lesion. There is no intrahepatic biliary duct dilatation seen. GALLBLADDER: Echogenic focus along the intraluminal wall of the superior margin of the gallbladder measuring 2 mm possibly representing an adherent calculus versus calcified polyp. The gallbladder is physiologically distended without evidence of sludge, polyps, wall thickening or pericholecystic fluid. COMMON BILE DUCT: Normal in caliber measuring 0.5 cm in diameter. RIGHT KIDNEY: Normal. No hydronephrosis. No renal calculi or focal parenchymal lesions. The kidney measures 10.2 cm in maximum dimension. LEFT KIDNEY: Normal. No hydronephrosis. No renal calculi or focal parenchymal lesions. The kidney measures 9.6 cm in maximum dimension. SPLEEN: Normal. The spleen measures 8.4 cm in maximum dimension. FREE FLUID: None. US/US abdomen complete IMPRESSION: 1. Mildly heterogeneous hepatic echotexture suggesting hepatic steatosis. 2. Echogenic focus along the intraluminal wall of the superior margin of the gallbladder measuring 2 mm possibly representing an adherent calculus versus calcified polyp.
== END 2021-09-17 08:15 | disposition home or self-care (01) ==
LOC: HO.US 08:14
PROVIDERS: Visit Provider Registered Nurse
DX: R74.8 Abnormal levels of other serum enzymes (principal)
CPT/HCPCS: 76700

== ENCOUNTER 2021-11-19 08:26 | Day surgery (SDC) | payer MEDICARE, SELFPAY ==
[2021-11-13 19:17] VITALS: BMI 26.1
--- NOTE | 2021-11-18 13:33 | HO.ANESPROP2 ---
Documented by User: Emily Reid NP 11/18/21 13:34 HPI - Anesthesia Eval Consult details Narrative: 70yo F for Colonoscopy ? daily prednisone daily ETOH s/p colo 09/2020 with MAC PMFSH Active Problems Active Problems: All Active Problems (Updated 01/15/21 @ 09:12 by Vinh Almaraz MD) History of colon cancer (Acute) S/P right colectomy (Acute) Postoperative wound seroma (Acute) Colon cancer (Acute) Ex-smoker for less than 1 year (Acute) Polyp of cecum (Acute) Past Medical History Medical History Arthritis Back pain Bronchitis Colon cancer Ex-smoker for less than 1 year History of colon cancer Polyp of cecum Reactive airway disease that is not asthma Family History Family History Brother History of lung cancer, Onset Age: 52 History of kidney cancer Brother Diabetes Mother No problems noted. Father HTN (hypertension) Heart attack Family history of problems with anesthesia: No Surgical History Surgical History History of colectomy History of colonoscopy (04/30/20) Hx of wisdom tooth extraction History of Problems with Anesthesia: No Social History Social History Are you a primary resident care assistant to a significant other at home: No Do you presently have visiting nurse or other home services: No Alcohol intake: current Alcohol intake frequency: 0-2 drinks per day Alcohol type: hard liquor Patient Tobacco Use Status: Former Tobacco user Quit Date: Cigarette Packs Per Day: 0.75 Cigarettes Per Day: 15.0 Years Smoked: 47 Smoked in Last 30 Days: No Use of substances other than those prescribed or required for medical reasons: Yes Substance Use Type: Marijuana Substance Use Frequency: Weekly Have you been hit, kicked, punched, or otherwise hurt by someone within the past year? If so, by whom?: No Are you DNR?: No Advance Directives: Yes Advance Directives Information Provided: Yes Advance Directives on File: Yes Advance Directives Date on File: 06/14/19 Recently lost weight without trying: No Eating poorly because of decreased appetite: No Patient : No service: No Current occupational status: retired Meds Allergies Allergy/AdvReac Type Severity Reaction Status Date / Time No Known Allergies Allergy Verified 11/13/21 19:16 Home Medications Medication Instructions Recorded Confirmed Last Taken Type L.acidophilus,rhamnosus-B.breve-S.thermophilus 2 tab PO DAILY 06/18/20 11/13/21 Unknown History 3 billion cell chew tab ukspfnhzpmyi-vhvwvahr-xwogei tablet 1 tab PO DAILY 06/18/20 11/13/21 Unknown History prednisone 20 mg tablet 20 mg PO DAILY 11/13/21 11/19/21 11/18/21 History Exam Exam Date and Time: November 18, 2021 1333 Height,Weight and Vital Signs: Height 5 ft 6 in Weight 73.482 kg Assessment and Plan Assessment Anesthesia Assessment: Chart Reviewed Final Anesthetic Review Family History of Problems with Anesthesia: No History of Problems with Anesthesia: No Documented by User: Constanza Daigle MD 11/19/21 09:39 [facility] Past Medical History Medical History Arthritis Back pain Bronchitis Colon cancer Ex-smoker for less than 1 year History of colon cancer Polyp of cecum Reactive airway disease that is not asthma Family History Family History Brother History of lung cancer, Onset Age: 52 History of kidney cancer Brother Diabetes Mother No problems noted. Father HTN (hypertension) Heart attack Surgical History Surgical History History of colectomy History of colonoscopy (04/30/20) Hx of wisdom tooth extraction Social History Social History Are you a primary resident care assistant to a significant other at home: No Do you presently have visiting nurse or other home services: No Alcohol intake: current Alcohol intake frequency: 0-2 drinks per day Alcohol type: hard liquor Patient Tobacco Use Status: Former Tobacco user Quit Date: Cigarette Packs Per Day: 0.75 Cigarettes Per Day: 15.0 Years Smoked: 47 Smoked in Last 30 Days: No Use of substances other than those prescribed or required for medical reasons: Yes Substance Use Type: Marijuana Substance Use Frequency: Weekly Have you been hit, kicked, punched, or otherwise hurt by someone within the past year? If so, by whom?: No Are you DNR?: No Advance Directives: Yes Advance Directives Information Provided: Yes Advance Directives on File: Yes Advance Directives Date on File: 06/14/19 Recently lost weight without trying: No Eating poorly because of decreased appetite: No Patient : No service: No Current occupational status: retired Meds Allergies Allergy/AdvReac Type Severity Reaction Status Date / Time No Known Allergies Allergy Verified 11/13/21 19:16 Home Medications Medication Instructions Recorded Confirmed Last Taken Type L.acidophilus,rhamnosus-B.breve-S.thermophilus 2 tab PO DAILY 06/18/20 11/13/21 Unknown History 3 billion cell chew tab wfjktlofhzdj-ziitoxnm-mgyryu tablet 1 tab PO DAILY 06/18/20 11/13/21 Unknown History prednisone 20 mg tablet 20 mg PO DAILY 11/13/21 11/19/21 11/18/21 History Exam Airway Mallampati Class: II (Implants laterally) TM Dist: >3cm Neck ROM: Full Heart: rrr Lungs: cta Assessment and Plan Assessment Anesthesia Assessment: Anesthesia Plan Discussed and Chart Reviewed Final Anesthetic Review NPO: Yes ASA Class: II Final Preanesthetic Review: No Changes in Pt Med Stat, Meds/Allgs Chart Reviewed and Consent Obtained/Reviewed Patient Risk: Intermediate Procedure Risk: Intermediate Anesthetic Plan Anesthetic Plan: MAC: Disposition: Standard PACU
--- NOTE | 2021-11-19 09:33 | P.HPSUR_ITS ---
Pre-Procedural Eval Section A Date of Service: 11/19/21 Section B Chief Complaint: Hx malignant neoplasm of large intestine Details of Present Illness: surveillance colonoscopy, hx of polyps on last colonoscopy Relevant Family History (Specify if Yes): No Relevant Social History: Other (specify) (THC) Present Medications: see Short Stay Collaborative assessment Medical History: Significant History (Arthritis Back pain Bronchitis Colon cancer Ex-smoker for less than 1 year History of colon cancer Polyp of cecum Reactive airway disease that is not asthma) History of Previous Operations: Relevant previous surgery/procedure and date(s) (History of colectomy History of colonoscopy (04/30/20) Hx of wisdom tooth extraction) Allergies: Allergies Allergy/AdvReac Type Severity Reaction Status Date / Time No Known Allergies Allergy Verified 11/13/21 19:16 Review of Systems Sugical H&P ROS: Negative: Constitution, Cardiovascular, Respiratory, Neurological, Psychiatric, Hem-Onc, Allergic/Immunologic, Gastrointestinal, Genitourinary, Musculoskeletal, Integumentary, Endocrine and Eyes/Ears/Nose/Throat Exam Surgical H&P Exam: Normal: HEENT, Normal: Heart, Normal: Lungs, Normal: Extre mities, Normal: Abdomen, Normal: Skin and Normal: Neurological Plan Diagnosis/Plan: Unchanged I have reviewed the history and physical and performed a pertinent physical examination on my patient. No changes have occurred unless specified. colonoscopy for surveillance
--- NOTE | 2021-11-19 09:46 | PM.OP ---
Brief Operative Note Date of Service: 11/19/21 Pre-op diagnosis: surveillance colonoscopy, hx of polyps on last colonoscopy Post-op diagnosis: same Procedure: see op note Surgeon: Michelle Moore MD Anesthesia: MAC Was an Water Systems Designer used for this Procedure?: No Estimated blood loss (mL): 0 Condition: stable Disposition: PACU
[2021-11-19 09:47] VITALS: BP 149/84; PULSE 72; RESP 18; TEMP 36.8; O2SAT 98
--- NOTE | 2021-11-19 09:47 | W.PM.OPN ---
Operative Note Operative Note Date of Service: 11/19/21 Narrative: Operative Information Procedure Description: Colonoscopy Indication: surveillance colonoscopy, hx of polyps on last colonoscopy Anesthesia: MAC COLONOSCOPY Instrument: Olympus variable stiffness pediatric scope 190L Colonoscopy Monitoring: Vital signs and clinical assessment, continuous EKG monitoring, Pulse oximetry, Carbon Dioxide monitoring and blood pressure monitoring were done throughout the procedure. Colon withdrawal time was 9 minutes. Procedure: The patient was placed in the left lateral decubitis position and pre-procedure medications were administered. After a digital rectal examination of the ano-rectum, the video colonoscope was inserted into the rectum and advanced through the colon to the cecum/TI. The colonoscope was slowly withdrawn in a retrograde panoramic fashion and the colon mucosa was carefully examined including a retroflexed view of the rectum. Findings and interventions are described below. Procedure Difficulty: easy Findings: ileocecal anastomosis- normal Ascending Colon: normal Transverse Colon - few diverticula seen Descending Colon:normal Sigmoid Colon: severe diverticulosis with luminal narrowing and hypertrophy, 7-8 mm sessile polyp removed with cold snare Rectum: Retroflexion with small internal hemorrhoids, grade I 6-8 mm sessile polyp removed with cold snare Anorectum - normal Colon preparation: [place] Bowel Preparation Scale Right colon; 2 Transverse colon: 2 Left colon; 2 (0 = Unprepared colon segment with mucosa not seen due to solid stool that cannot be cleared. 1 = Portion of mucosa of the colon segment seen, but other areas of the colon segment not well seen due to staining, residual stool and/or opaque liquid. 2 = Minor amount of residual staining, small fragments of stool and/or opaque liquid, but mucosa of colon segment seen well. 3 = Entire mucosa of colon segment seen well with no residual staining, small fragments of stool or opaque liquid) Impression and Post Procedure Diagnosis: polyps internal hemorrhoids diverticular disease Plan: High fiber diet leaflet Avoid straining at stool, epsom salts and sitz bath, anusol supps or cream Repeat Colonoscopy in 2-3 years or earlier if clinically indicated Above findings were reviewed with the patient and relevant handouts were provided if indicated.
[2021-11-19] MEDS: Lactated Ringers 1,000 ML 100 ML IVCONT (09:48)
[2021-11-19 10:26] VITALS: BP 92/60; PULSE 89; RESP 16; TEMP 36.4; O2SAT 97
[2021-11-19 10:41] VITALS: BP 128/77; PULSE 72; RESP 16; TEMP 36.4; O2SAT 100
== END 2021-11-19 11:13 | disposition home or self-care (01) ==
PROVIDERS: Visit Provider Internal Medicine Gastroenterology
PROC: 0DJD8ZZ Inspection of Lower Intestinal Tract, Via Natural or Artificial Opening Endoscopic (ICD-10-PCS; CPT 45378; principal; 2021-11-19 10:50)
DX: Z12.11 Encounter for screening for malignant neoplasm of colon (principal); Z85.038 Personal history of other malignant neoplasm of large intestine; Z86.010 Personal history of colon polyps; D12.5 Benign neoplasm of sigmoid colon; K62.1 Rectal polyp; K57.30 Diverticulosis of large intestine without perforation or abscess without bleeding; K64.0 First degree hemorrhoids; Z90.49 Acquired absence of other specified parts of digestive tract; Z98.0 Intestinal bypass and anastomosis status; J98.8 Other specified respiratory disorders; Z87.891 Personal history of nicotine dependence
CPT/HCPCS: 45385; 88305

== ENCOUNTER 2022-02-23 09:56 | Outpatient (REF) | payer MEDICARE, SELFPAY ==
[2022-02-23 11:11] LABS: MANUAL DIFF FLAG NO
[2022-02-23 11:38] LABS: Basophils Percent Auto 0.5 % (0-2); Eosinophils Absolute Auto 0.1 X10*3/uL (0.0-0.4); Eosinophils Percent Auto 1.9 % (0-4); Hematocrit 42.3 % (37.0-47.0); Imm Gran Abs Auto 0.03 X10*3/uL (0.00-0.03); Imm Gran Pct Auto 0.4 % (0.0-0.4); Lymphocytes Absolute Auto 1.3 X10*3/uL (1.2-4.9); Lymphocytes Percent Auto 17.1 % (20-40); Mean Corpuscular HGB Conc 33.1 g/dl (31.0-35.0); Mean Corpuscular Hemoglobin 35.8 pg (27.0-33.0); Mean Corpuscular Volume 108.2 fL (80.0-98.0); Mean Platelet Volume 9.1 fL (9.4-12.3); Monocytes Absolute Auto 0.5 X10*3/uL (0.1-1.2); Monocytes Percent Auto 6.6 % (2-11); Neutrophils Absolute Auto 5.5 x10*3/uL (2.0-8.3); Neutrophils Percent Auto 73.5 % (45-73); Platelet Count 338 X10*3/uL (160-400); Red Blood Count 3.91 X10*6/uL (4.20-5.50); Red Cell Distribution Width 15.4 % (11.0-16.0); White Blood Count 7.5 X10*3/uL (4.8-10.8)
[2022-02-23 11:55] LABS: Alanine Aminotransferase 10 U/L (0-31); Albumin Level 4.3 g/dL (3.5-5.0); Alkaline Phosphatase 154 U/L (39-117); Anion Gap 16 (12-20); Aspartate Amino Transferase 18 U/L (5-31); Bilirubin Total 1.1 mg/dL (0.0-1.0); Blood Urea Nitrogen 11 mg/dL (9-16); Calcium 9.4 mg/dL (8.4-10.2); Carbon Dioxide 28 mmol/L (22-29); Chloride 103 mmol/L (96-108); Estimated Glomerular Filt Rate > 60; Glucose Random 103 mg/dL (60-115); Iron 129 mcg/dL (30-160); Percent Iron Saturation 33 % (15-50); Potassium 4.1 mmol/L (3.3-5.1); Sodium 143 mmol/L (135-145); Total Iron Binding Capacity 389 mcg/dL (228-428); Total Protein 7.2 g/dL (6.5-8.0); Unsaturated Iron Binding 260 ug/dL
[2022-02-23 12:18] LABS: Ferritin 301 ng/mL (10-250)
[2022-02-23 12:24] LABS: HBS Num1 1.06 mIU/mL (0-7.99); HBc Num1 0.04 S/CO (0.00-0.79); Hepatitis B Core Antibody Nonreactive (Nonreactive); Hepatitis B Surface Antigen Negative (Negative); ~HepC Num1 0.09 S/CO (0.00-0.79); ~Hepatitis B Surface Antibody NONREACTIVE (Nonreactive); ~Hepatitis C Antibody Nonreactive (Nonreactive)
[2022-02-23 12:42] LABS: Folate 18.2 ng/mL (> or = 4.0); Vitamin B12 255 pg/mL (200-900)
[2022-02-23 13:39] LABS: INTERNATIONAL NORM RATIO 0.8 (0.9-1.1); Prothrombin Time 9.6 SEC (10.0-13.1)
[2022-02-24 14:37] LABS: Alpha 1 Anti-trypsin 155 mg/dL (83-199); Immunoglobulin G 880 mg/dL (600-1540)
[2022-02-25 03:59] LABS: Hepatitis A Antibody IgM 0.19 Index (0-0.79); ~Hepatitis A Antibody IgM Nonreactive (Nonreactive)
[2022-02-25 07:16] LABS: Transglutaminase Ab IgG <1.0 U/mL
[2022-02-25 23:52] LABS: Smooth Muscle Antibody <20 U (<20)
[2022-02-26 11:12] LABS: Mitochondrial Antibodies NEGATIVE (NEGATIVE)
[2022-02-26 13:52] LABS: Liver Kidney Microsomal Ab <=20.0 U (<=20.0)
[2022-02-27 23:22] LABS: Soluble Liver Ag Autoantibody <20.1 U (0.0-20.0)
== END 2022-02-23 09:57 | disposition home or self-care (01) ==
LOC: HO.LAB 09:56
PROVIDERS: PCP Registered Nurse; Visit Provider Internal Medicine Gastroenterology
DX: C18.9 Malignant neoplasm of colon, unspecified (principal); R79.89 Other specified abnormal findings of blood chemistry; K75.81 Nonalcoholic steatohepatitis (NASH); G89.29 Other chronic pain; R10.33 Periumbilical pain; K52.839 Microscopic colitis, unspecified
CPT/HCPCS: 36415; 80053; 82103; 82607; 82728; 82746; 82784; 83520; 83540; 85025; 85610; 86015; 86255; 86256; 86364; 86376; 86704; 86706; 86709; 86803; 87340; 99212

== ENCOUNTER → 2024-02-09 14:37 | Outpatient (RCR) | payer MEDICARE, SELFPAY ==
[2020-07-22 10:08] VITALS: BP 161/86; PULSE 86; RESP 12; TEMP 36.6; O2SAT 99; BMI 25.9
--- NOTE | 2020-07-22 10:26 | P.CNHO_ITS ---
Subjective - Subjective Chief complaint: Consult for colon cancer. Patient: new to practice Consult date: 07/22/20 Requesting Physician: Sung. Primary Care Provider: Reena Quintero NP Medical Summary: DIAGNOSIS: INVASIVE ADENOCARCINOMA, moderately differentiated, 1cm, with extensive high- grade dysplasia. Adenocarcinoma is located in the ascending colon. It invades into the submucosa. Foci suspicious for but not diagnostic of lymphovascular invasion are present. Eleven benign lymph nodes are present. Separate tubular while assess adenoma with high-grade dysplasia, approximately 1.5 cm in greatest dimension arising within the appendix, negative in invasive carcinoma. Stage: pT1, N0,Mx. HPI - Consult Narrative Narrative: Humera Liao is a pleasant 69 year old lady, who lives in [facility] and was visiting [facility], to take care of her elderly mom, who passed last year. She is now taking care of the house trying to sell it. She had her screening colonoscopy, by Dr. Moore, on 05/01. This revealed: Focus of high-grade dysplasia at the cauterized stalk margin in a fragment of polypectomy specimen from the sigmoid colon. May [address] scan of the abdomen which revealed: Mild constipation. No acute process seen. Grade 1 anterolisthesis L4 over L5. There are degenerative disc changes at all lumbar disc levels and moderate ventral spondylosis lower dorsal spine. She was referred to Dr. Almaraz, who proceeded with colon resection, on June 21. Pathology: Invasive adenocarcinoma, moderately differentiated, 1 cm in greatest dimension, arising within a tubulovillous adenoma with extensive high-grade dysplasia. Adenocarcinoma is located in the ascending colon. Adenocarcinoma invades into the submucosa. Foci suspicious for, but not diagnostic for lymphovascular invasion are present. She is here for further evaluation. 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 For the past 3 years she has been taking care of her mom, who last year. She is . She had no kids of her own however she has 5 step kids and 17 grandkids. She used to smoke a pack-a-day quit in April of last year. She drinks 2 drinks of alcohol a day. Family history: No known family history of colon cancer. A brother had lung/kidney cancer. [facility] Medical History: Medical History (Last Reviewed 07/18/20 @ 10:25 by Vinh Almaraz MD) Arthritis Back pain Bronchitis Colon cancer Ex-smoker for less than 1 year Polyp of cecum Reactive airway disease that is not asthma Functional capacity: independent ambulation Patient : No Family History: Family History (Last Updated 07/22/20 @ 10:16 by Constanza Wesley) Brother History of lung cancer, Onset Age: 52 History of kidney cancer Brother Diabetes Mother No problems noted. Father HTN (hypertension) Heart attack Surgical History: Surgical History (Last Reviewed 07/18/20 @ 10:25 by Vinh Almaraz MD) History of colonoscopy Onset Date: 04/30/20 Hx of wisdom tooth extraction Social History: Social History (Last Updated 07/22/20 @ 10:17 by Constanza Wesley) Living Situation History: Are you a primary pediatric critical care nurse to a significant other at home: No Alcohol History: Alcohol intake: current Alcohol History Details: Alcohol intake frequency: 0-2 drinks per day Alcohol type: hard liquor Tobacco History: Smoking Status: Former smoker Tobacco Type: Cigarette Years Smoked: 47 Smoked in Last 30 Days: No Smoking Quit Date: 04/14/2020 Substance Use History: Use of substances other than those prescribed or required for medical reasons : Yes Substance Use Type: Marijuana Domestic Abuse History: Have you been hit, kicked, punched, or otherwise hurt by someone within the past year? If so, by whom?: No Do you feel safe in your current relationship?: Yes Healthcare Practices: [facility] Practices: [facility] Nutrition Assessment: Recently lost weight without trying: No Nutrition Risks: No Nutritional Risk Patient : No : No Poor oral hygiene: No Occupation Assessmet: service: No Current occupational status: retired Smoking status: Former smoker Home Medications and Allergies Home Medications Medication Instructions Recorded Confirmed Type bupropion HCl 150 mg PO BID 04/24/20 07/22/20 History B.breve-L.acid-L.rham-S.thermo 2 tab PO DAILY 06/18/20 07/22/20 History bldsdrliaxkm-yypqnjja-ekkbvl 1 tab PO DAILY 06/18/20 07/22/20 History Allergies Allergy/AdvReac Type Severity Reaction Status Date / Time No Known Allergies Allergy Verified 07/18/20 10:10 Physical Exam Vital signs: Vital Signs Temp 97.8 F 07/22/20 10:08 Pulse 86 07/22/20 10:08 Resp 12 07/22/20 10:08 BP 161/86 H 07/22/20 10:08 Pulse Ox 99 07/22/20 10:08 Intake & Output 07/21/20 07/22/20 07/22/20 18:59 06:59 18:59 Other: Weight 73.1 kg Weight in Grams 62700 Weight 73.1 kg - Constitutional Present: no acute distress - Routine HEENT Exam Head: Present: normal inspection ENT: Present: mucous membranes moist - Routine Neck Exam Present: supple - Routine Respiratory Exam Present: CTAB - Routine Cardiovascular Exam Cardiovascular: Present: RRR, S1, S2 - Routine Abdominal Exam Present: soft, nontender - Routine Rectal Exam Patient deferred: digital exam - Routine Extremities Exam Present: nontender - Routine Skin Exam Present: intact - Routine Neurological Exam Present: alert, oriented X3 - Detailed Neurological Exam: Coma Scale Eye Opening: Spontaneous (4) Verbal Response: Oriented (5) Motor Response: Obeys commands (6) [place] Coma Scale Total: 15 - Routine Psychiatric Exam Present: normal affect Hem/Onc Consult Result - Labs CBC & Chem 7: 07/22/20 11:00 07/22/20 11:00 Assessment and Plan (1) Colon cancer Status: Acute This is a pleasant 69-year-old lady, who on a routine colonoscopy was noted to have high-grade dysplasia in a polyp. She underwent further resection on 06/[address] Almaraz. Pathology: Invasive adenocarcinoma, moderately differentiated, 1 cm in greatest dimension, arising within a tubulovillous adenoma with extensive high-grade dysplasia. Adenocarcinoma is located in the ascending colon. Adenocarcinoma invades into the submucosa. Foci suspicious for, but not diagnostic for lymphovascular invasion are present. The role of adjuvant chemotherapy after curative resection of stage II colon cancer is controversial. A study was done comparing adjuvant therapy for to no such therapy for patients older than 70. It did not reveal survival benefit for adjuvant treatment. The patient has a very early stage disease, with good histologic features. She can avoid toxicity from adjuvant treatment. PLAN: I will check baseline labs including CEA level. (6.7.) Will continue to monitor. She will have a surveillance colonoscopy in about a year's time. If she decides to go back home, will send copies of medical records with her. She will return in a month for a follow-up visit. All her questions were answered to her satisfaction. Thank you, CC: Dr. Reena Kulkarni.
--- NOTE | 2020-07-22 10:55 | MHC.HEMONCMA ---
Patient came in for a consult for recent diagnosis of colon cancer. She states she finally went for a colonscopy and that they found a polyp that she needed to go back to get removed. They removed in and a portion of her intestine and the pathology came back positive. She states she is feeling better, her incision took a little longer to heal but it is better now. Patient is from [facility] but is out here because she was taking care of her mother, but she last year so she is getting the house ready to sell so she can move back home. Patient's chart was thoroughly reviewed and updated, she will have labs.
[2020-07-22 11:13] LABS: MANUAL DIFF FLAG NO
[2020-07-22 11:19] LABS: Basophils Percent Auto 0.4 % (0-2); Eosinophils Absolute Auto 0.2 X10*3/uL (0.0-0.4); Eosinophils Percent Auto 2.4 % (0-4); Hemoglobin 13.4 g/dl (12.0-16.0); Imm Gran Abs Auto 0.02 X10*3/uL (0.00-0.03); Imm Gran Pct Auto 0.3 % (0.0-0.4); Lymphocytes Absolute Auto 1.2 X10*3/uL (1.2-4.9); Lymphocytes Percent Auto 17.5 % (20-40); Mean Corpuscular HGB Conc 32.7 g/dl (31.0-35.0); Mean Corpuscular Hemoglobin 33.8 pg (27.0-33.0); Mean Corpuscular Volume 103.5 fL (80-98); Mean Platelet Volume 8.9 fL (9.4-12.3); Monocytes Absolute Auto 0.8 X10*3/uL (0.1-1.2); Monocytes Percent Auto 10.7 % (2-11); Neutrophils Absolute Auto 4.8 X10*3/uL (2.0-8.3); Neutrophils Percent Auto 68.7 % (45-73); Platelet Count 288 X10*3/uL (160-400); Red Blood Count 3.96 X10*6/uL (4.20-5.50); Red Cell Distribution Width 12.5 % (11.0-16.0)
[2020-07-22 11:50] LABS: Alanine Aminotransferase 17 U/L (0-31); Albumin Level 4.1 g/dL (3.5-5.0); Alkaline Phosphatase 163 U/L (39-117); Anion Gap 13 (12-20); Aspartate Amino Transferase 19 U/L (5-31); Bilirubin Total 0.5 mg/dL (0.0-1.0); Blood Urea Nitrogen 20 mg/dL (9-16); Calcium 9.5 mg/dL (8.4-10.2); Carbon Dioxide 30 mmol/L (22-29); Chloride 102 mmol/L (96-108); Creatinine Clr Calc Pharmacy 59.2; Estimated Glomerular Filt Rate 60; Glucose Random 119 mg/dL (60-115); Potassium 4.6 mmol/L (3.3-5.1); Sodium 140 mmol/L (135-145); Total Protein 6.8 g/dL (6.5-8.0)
--- NOTE | 2020-07-22 14:14 | MHC.HEMONCSW ---
PATIENT IS A 69 YEAR OLD , RESIDES ALONE AND IS INDEPENDENT. SHE IS ABLE TO MAKE HER NEEDS KNOWN. DIAGNOSIS IS STAGE ONE COLON CANCER, NO TREATMENT ADVISED AT THIS TIME. REPORTS COPING WELL. PLAN; MONITOR PATIENT. SHE PLANS ON MOVING BACK TO [facility] ONCE SHE SELLS HER MOTHERS HOME EDUCATION AND SUPPORT PROIDED..
== END | disposition home or self-care (01) ==
LOC: HO.ONC 07-22 09:48
PROVIDERS: PCP Registered Nurse; Referring Provider Surgery; Visit Provider Internal Medicine Medical Oncology
DX: C18.2 Malignant neoplasm of ascending colon (principal)
CPT/HCPCS: 36415; 80053; 82378; 85025; 99204

== ENCOUNTER 2024-03-06 14:04 | Outpatient (AMB) | payer MEDICARE, SELFPAY ==
--- NOTE | 2024-03-06 14:11 | MHC.OFFVIS ---
Vital Signs 03/06/24 14:12 Height 5 ft 0.5 in Weight 170 lb BMI 32.7 BP 156/76 H Blood Pressure Location Lt brachial Position Sitting Pulse 87 Intake Visit Reasons: Discuss Colonoscopy Intake Note: Humera presents in the office to discuss colonoscopy. States that she is due since her last one and is not having any concerns at this time. 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 VITAL SIGNS:see workflow HEENT: Nonicteric sclerae, PERRLA, EOMI. Oropharynx clear. Moist mucous membranes. Conjunctivae appear well perfused. No thyroid mass. CHEST: Chest wall is nontender. HEART: Regular rate and rhythm without murmurs. LUNGS: Clear to auscultation bilaterally. ABDOMEN: Soft, positive bowel sounds, nontender, no organomegaly.no flank tenderness SKIN: No rash, no excessive bruising, petechiae, or purpura. NEUROLOGIC: Cranial nerves II-XII intact without motor/sensory deficit. Psych: normal affect A/P 1/ Hx of CRC and polyps s/p right hemicolectomy PLAN: 1/ repeat colonoscopy, suprep sent [facility] Medical History History of colon cancer Colon cancer Arthritis Back pain Bronchitis Ex-smoker for less than 1 year Polyp of cecum Reactive airway disease that is not asthma Surgical History History of colectomy History of colonoscopy (04/30/20) Hx of wisdom tooth extraction Family History Brother History of lung cancer, Onset Age: 52 History of kidney cancer Brother Diabetes Mother No problems noted. Father HTN (hypertension) Heart attack Social History Are you a primary livestock caretaker to a significant other at home: No Do you presently have visiting nurse or other home services: No Alcohol intake: current Alcohol intake frequency: 0-2 drinks per day Alcohol type: hard liquor Comment: resting in bed Patient Tobacco Use Status: Former Tobacco user Cigarette Packs Per Day: 0.75 Cigarettes Per Day: 15.0 Years Smoked: 47 Substance Use Type: Marijuana Advance Directives Date on File: 06/14/19 service: No Current occupational status: retired Physical Exam Vital Signs: Last Vital Signs Pulse 87 03/06/24 14:12 BP 156/76 H 03/06/24 14:12 BMI result Body Mass Index 32.7 Assessment & Plan Assessment & Plan (1) History of colon cancer: Code(s): Z85.038 - Personal history of other malignant neoplasm of large intestine Category: Medical Plan: rept colo now Medications: New sodium,potassium,mag sulfates 17.5-3.13-1.6 gram (Suprep Bowel Prep Kit) DILUTE; drink 1/2 at 6-8 pm and half at 11 PM- 1AM 354 mL 0RF Coding Level of Care Code Est Pt Level 3 (50728) Diagnoses History of colon cancer Z85.038
[2024-03-06 14:12] VITALS: BP 156/76; PULSE 87; BMI 32.7
== END 2024-03-06 14:49 | disposition home or self-care (01) ==
PROVIDERS: PCP Internal Medicine; Visit Provider Internal Medicine Gastroenterology
DX: Z85.038 Personal history of other malignant neoplasm of large intestine (principal)
CPT/HCPCS: 99213

== ENCOUNTER → 2024-03-06 14:04 | Outpatient (BNVA) | payer MEDICARE, SELFPAY | PROVIDERS: PCP Internal Medicine; Visit Provider Internal Medicine Gastroenterology | DX: Z01.818 Encounter for other preprocedural examination (principal); Z85.038 Personal history of other malignant neoplasm of large intestine | CPT/HCPCS: 99212 ==

== ENCOUNTER 2024-07-11 06:57 | Day surgery (SDC) | payer MEDICARE, SELFPAY ==
--- NOTE | 2024-07-10 13:32 | P.CONAN_ITS ---
HPI - Anesthesia Eval Consult details Narrative: 73yo F for Colonoscopy PMFSH Active Problems Active Problems: All Active Problems Abnormal LFTs (Acute) History of colon cancer (Acute) S/P right colectomy (Acute) Postoperative wound seroma (Acute) Colon cancer (Acute) Ex-smoker for less than 1 year (Acute) Polyp of cecum (Acute) Past Medical History Medical History History of colon cancer Colon cancer Arthritis Back pain Bronchitis Ex-smoker for less than 1 year Polyp of cecum Reactive airway disease that is not asthma Family History Family History Brother History of lung cancer, Onset Age: 52 History of kidney cancer Brother Diabetes Mother No problems noted. Father HTN (hypertension) Heart attack Family history of problems with anesthesia: No Surgical History Surgical History History of colectomy History of colonoscopy (04/30/20) Hx of wisdom tooth extraction History of Problems with Anesthesia: No Social History Social History Are you a primary ambulatory care coordinator to a significant other at home: No Do you presently have visiting nurse or other home services: No Alcohol intake: current Alcohol intake frequency: 0-2 drinks per day Alcohol type: hard liquor Comment: resting in bed Patient Tobacco Use Status: Former Tobacco user Cigarette Packs Per Day: 0.75 Cigarettes Per Day: 15.0 Years Smoked: 47 Substance Use Type: Marijuana Advance Directives Date on File: 06/14/19 service: No Current occupational status: retired [employer] Allergies Allergy/AdvReac Type Severity Reaction Status Date / Time No Known Allergies Allergy Verified 11/13/21 19:16 Home Medications ?Medication ?Instructions ?Recorded ?Confirmed ?Last Taken ?Type L.acidophilus,rhamnosus-B.breve-S.thermophilus 2 tab PO DAILY 06/18/20 11/13/21 Unknown History 3 billion cell chew tab hypkyjxbquzd-pxgmzcbi-uhrycc tablet 1 tab PO DAILY 06/18/20 11/13/21 Unknown History folic acid 1 mg tablet 1 mg PO DAILY 02/23/22 Unknown History methotrexate sodium 2.5 mg tablet 15 mg PO QWEEK 02/23/22 Unknown History Assessment and Plan Assessment Anesthesia Assessment: Chart Reviewed Final Anesthetic Review Family History of Problems with Anesthesia: No History of Problems with Anesthesia: No
[2024-07-11 07:07] VITALS: BP 153/89; PULSE 88; RESP 16; TEMP 36.7; O2SAT 98; BMI 27.4
[2024-07-11] MEDS: Lactated Ringers 1,000 ML 100 ML IVCONT (07:21)
--- NOTE | 2024-07-11 07:40 | P.HPSUR_ITS ---
Pre-Procedural Eval Section A - 24 Hr Update-Section A only Date of Service: 07/11/24 Section B - Complete if H&P > 30 days Chief Complaint: Personal history of other malignant neoplasm Relevant Family History (Specify if Yes): No Relevant Social History: None Present Medications: see Short Stay Collaborative assessment Medical History: Significant History (History of colon cancer Colon cancer Arthritis Back pain Bronchitis Ex-smoker for less than 1 year Polyp of cecum Reactive airway disease that is not asthma) History of Previous Operations: Relevant previous surgery/procedure and date(s) (History of colectomy History of colonoscopy (04/30/20) Hx of wisdom tooth extraction) Allergies: Allergies Allergy/AdvReac Type Severity Reaction Status Date / Time No Known Allergies Allergy Verified 11/13/21 19:16 Review of Systems Sugical H&P ROS: Negative: Constitution, Cardiovascular, Respiratory, Neurological, Psychiatric, Hem-Onc, Allergic/Immunologic, Gastrointestinal, Genitourinary, Musculoskeletal, Integumentary, Endocrine and Eyes/Ears/Nose /Throat Exam Surgical H&P Exam: Normal: HEENT, Normal: Heart, Normal: Lungs, Normal: Extremities, Normal: Abdomen, Normal: Skin and Normal: Neurological Plan Diagnosis/Plan: Unchanged I have reviewed the history and physical and performed a pertinent physical examination on my patient. No changes have occurred unless specified. Time Spent With Patient Time: Total time managing care of this patient today ____ minutes.
--- NOTE | 2024-07-11 08:47 | P.OPN-COLO_ITS ---
Colonoscopy Operative Note Operative Note Date of Service: 07/11/24 Narrative: Operative Information Procedure Description: Colonoscopy Indication: screening Anesthesia: MAC COLONOSCOPY Instrument: Olympus variable stiffness pediatric scope 190L Colonoscopy Monitoring: Vital signs and clinical assessment, continuous EKG monitoring, Pulse oximetry, Carbon Dioxide monitoring and blood pressure monitoring were done throughout the procedure. Colon withdrawal time was 14 minutes. Procedure: The patient was placed in the left lateral decubitis position and pre-procedure medications were administered. After a digital rectal examination of the ano-rectum, the video colonoscope was inserted into the rectum and advanced through the colon to the cecum/TI. The colonoscope was slowly withdrawn in a retrograde panoramic fashion and the colon mucosa was carefully examined including a retroflexed view of the rectum. Findings and interventions are described below. Procedure Difficulty: easy Findings: ileocecal anastomosis- normal Ascending Colon: normal Transverse Colon - few diverticula seen, 7-9 mm sessile polyp removed with cold snare Descending Colon: 5-7 mm sessile polyp removed with cold forceps Sigmoid Colon: severe diverticulosis with luminal narrowing and hypertrophy, 7-8 mm sessile polyp removed with cold snare Rectum: Retroflexion with small internal hemorrhoids, grade I Anorectum - normal Colon preparation: [place] Bowel Preparation Scale Right colon; 2 Transverse colon: 2 Left colon; 2 (0 = Unprepared colon segment with mucosa not seen due to solid stool that cannot be cleared. 1 = Portion of mucosa of the colon segment seen, but other areas of the colon segment not well seen due to staining, residual stool and/or opaque liquid. 2 = Minor amount of residual staining, small fragments of stool and/or opaque liquid, but mucosa of colon segment seen well. 3 = Entire mucosa of colon segment seen well with no residual staining, small fragments of stool or opaque liquid) Impression and Post Procedure Diagnosis: polyps x 2 internal hemorrhoids diverticular disease Plan: High fiber diet leaflet Avoid straining at stool, epsom salts and sitz bath, anusol supps or cream Repeat Colonoscopy in 2-3 years or earlier if clinically indicated
[2024-07-11 08:53] VITALS: BP 100/57; PULSE 83; RESP 12; TEMP 36.8; O2SAT 97
[2024-07-11 09:07] VITALS: BP 118/67; PULSE 72; RESP 14; TEMP 36.8; O2SAT 99
== END 2024-07-11 09:53 | disposition home or self-care (01) ==
PROVIDERS: PCP Registered Nurse; Visit Provider Internal Medicine Gastroenterology
PROC: 0DJD8ZZ Inspection of Lower Intestinal Tract, Via Natural or Artificial Opening Endoscopic (ICD-10-PCS; CPT 45378; principal; 2024-07-11 08:20)
DX: Z12.11 Encounter for screening for malignant neoplasm of colon (principal); Z85.038 Personal history of other malignant neoplasm of large intestine; D12.4 Benign neoplasm of descending colon; K63.5 Polyp of colon; K57.30 Diverticulosis of large intestine without perforation or abscess without bleeding; K64.0 First degree hemorrhoids; Z98.0 Intestinal bypass and anastomosis status; Z90.49 Acquired absence of other specified parts of digestive tract; J98.4 Other disorders of lung; Z87.891 Personal history of nicotine dependence
CPT/HCPCS: 45385; 45380; 88305; J2003; J2704

== ENCOUNTER → 2024-07-11 06:57 | Outpatient (BNV) | payer MEDICARE, SELFPAY | PROVIDERS: PCP Registered Nurse; Visit Provider Internal Medicine Gastroenterology | DX: Z12.11 Encounter for screening for malignant neoplasm of colon (principal); D12.4 Benign neoplasm of descending colon; K63.5 Polyp of colon; K57.90 Diverticulosis of intestine, part unspecified, without perforation or abscess without bleeding; K64.0 First degree hemorrhoids | CPT/HCPCS: 45380; 45385 ==